=== PATIENT | male | born 1965 | race Caucasian/White ===

== ENCOUNTER → 2018-03-10 15:15 | Outpatient (REF) | payer BC, SELFPAY ==
[2018-03-10 18:36] LABS: Basophils % 0.6 % (0.1-2.0); Eosinophils # 0.1 K/mm3 (0.0-0.4); Eosinophils % 0.7 % (0.1-12.0); Hematocrit 41.2 % (42.0-52.0); Hemoglobin 14.2 g/dL (14.1-18.0); Lymphocytes # 2.1 K/mm3 (0.7-4.5); Lymphocytes % 32.3 K/mm3 (10-50); Mean Corpuscular HGB Conc 34.5 g/dL (31.8-35.4); Mean Corpuscular Hemoglobin 32.5 pg (27.0-31.2); Mean Corpuscular Volume 94.3 fl (80-94); Mean Platelet Volume 7.9 fl (7.4-10.4); Monocytes # 0.4 K/mm3 (0.1-1.0); Monocytes % 6.4 % (1.7-9.3); Neutrophils % 60.1 % (37.0-80.0); Platelet Count 256 K/mm3 (142-424); Red Blood Count 4.37 M/mm3 (4.60-6.20); Red Cell Distribution Width 13.5 % (11.5-17.5); White Blood Count 6.6 K/mm3 (4.8-10.8)
[2018-03-10 19:00] LABS: Alanine Aminotransferase 34 U/L (12-78); Albumin Level 3.5 gm/dL (3.4-5.0); Albumin/Globulin Ratio 1.1 (1.1-1.8); Alkaline Phosphatase 103 U/L (46-116); Aspartate Amino Transferase 25 U/L (15-37); Bilirubin,Total 0.2 mg/dL (0.2-1.0); Blood Urea Nitrogen 11 mg/dL (7-18); Calcium 8.9 mg/dL (8.5-10.1); Carbon Dioxide 26 mmol/L (21.0-32.0); Chloride 103 mmol/L (98-107); Chol/HDL Ratio 6.2 (1-3.5); Cholesterol 234 mg/dL (140-200); Creatinine,Serum 1.07 mg/dL (0.70-1.30); Estimated Glomerular Filt Rate 73 ml/min (>60); GFR (African American) 89 ML/MIN (>60); Globulin 3.3 gm/dl (1.3-3.2); HDL Cholesterol 38 mg/dL (27-67); Sodium 140 mmol/L (136-145); T4 (Thyroxine) 7.5 ug/dl (4.7-13.3); Total Protein,Serum 6.8 gm/dL (6.4-8.2)
[2018-03-10 19:24] LABS: Glucose 110 mg/dL (74-106); Triglycerides 468 mg/dL (30-200)
[2018-03-12 11:13] LABS: Hep A Ab, IgM Negative (Negative); Hepatitis B Core Antibody IgM Negative (Negative); Hepatitis B Surface Antigen Negative (Negative)
[2018-03-12 16:38] LABS: Peripheral Smear Review Scanned Result
[2018-03-12 18:39] LABS: HIV Screen 4th Generation wRfx Non Reactive (Non Reactive); Hepatitis C Antibody <0.1 s/co ratio (0.0-0.9)
[2018-03-14 06:09] LABS: PSA, Free 0.28 ng/mL; Prostate Specific Ag 1.1 ng/mL (0.0-4.0); Vitamin D 25 Hydroxy 27.9 ng/mL (30.0-100.0)
[2018-03-14 15:31] LABS: Neisseria gonorrhoeae, NAA Negative (Negative)
[2018-03-17 21:09] LABS: Testosterone, Total, LC/MS 313.3 ng/dL (264.0-916.0)
== END ==
LOC: LAB 15:15
PROVIDERS: Visit Provider Physician Assistant
DX: R19.09 Other intra-abdominal and pelvic swelling, mass and lump (principal)
CPT/HCPCS: 80053; 80061; 80074; 82652; 84153; 84154; 84402; 84436; 84443; 85025; 86703; 87491; 87591; G0432

== ENCOUNTER → 2018-03-11 10:42 | Outpatient (CLI) | payer BC, SELFPAY ==
--- NOTE | 2018-03-11 11:02 | US_ITS ---
US extremity RT limited CLINICAL INDICATION: ITS.REASON: Mass rt groin ORDERING PHYSICIAN: TORRIE Amaya PATIENT AGE: 52 years FINDINGS: Ultrasound performed of the palpable abnormality in the right groin. This is below the level the inguinal ligament. There is a hypoechoic solid appearing mass measuring 4 x 2 x 3 cm. This has the appearance of an enlarged lymph node. There is some increased echogenicity centrally as one sees with a hilum of the lymph node. There is moderate increase vascularity. IMPRESSION: Solid appearing right groin mass which appears to represent an enlarged lymph node. This would be accessible to percutaneous fine-needle aspiration with sonographic guidance if clinically warranted as long as the patient is not on any anticoagulants including aspirin. However, would also recommend a chest abdomen pelvis with contrast to evaluate for other areas of adenopathy.
== END ==
PROVIDERS: Family Provider Physician Assistant; PCP Physician Assistant; Visit Provider Physician Assistant
DX: R19.09 Other intra-abdominal and pelvic swelling, mass and lump (principal)
CPT/HCPCS: 76882

== ENCOUNTER → 2018-03-22 08:07 | Outpatient (REF) | payer BC, SELFPAY ==
[2018-03-24 06:10] LABS: Testosterone,Free 8.7 pg/mL (7.2-24.0)
[2018-03-25 19:22] LABS: Testosterone, Total, LC/MS 317.9 ng/dL (264.0-916.0)
== END ==
LOC: LAB 08:07
PROVIDERS: Visit Provider Physician Assistant
DX: R19.09 Other intra-abdominal and pelvic swelling, mass and lump (principal)
CPT/HCPCS: 84402

== ENCOUNTER → 2018-03-28 09:21 | Outpatient (CLI) | payer BC, SELFPAY ==
--- NOTE | 2018-03-28 09:23 | CT_ITS ---
CT abdomen pelvis w con CLINICAL HISTORY: Recent enlarged right inguinal lymph node . TECHNIQUE: Helical CT scanning performed abdomen and pelvis following 75 cc Isovue-370.. No oral contrast utilized. Axial sagittal and coronal reconstructions performed on CT workstation. All CT scans at this facility used one or more dose reduction techniques , viz: automatic exposure control, ma/Kv adjustment per patient's size, (including targeted exam where dose matched to the indication; i.e. head); or iterative reconstruction technique COMPARISON: CT abdomen from 2006 PROCEDURE: Oral Contrast: IV Contrast: ml IV Isovue was injected intravenously. FINDINGS: Lung bases: ABDOMEN: Liver: No masses or biliary dilatation. Gallbladder: Nondistended. No radio opaque stones.. No biliary ductal dilatation Pancreas: No masses or peripancreatic fluid collections. Spleen: Unremarkable. Normal size Adrenals: Unremarkable Kidneys/ureters: No solid masses. No renal calculi. No hydronephrosis. No perinephric fluid collections. No ureteral dilatation or obvious ureteral calculi.. 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 2.1 cm and not appearing cyst at the anterior aspect of lower left kidney. This benign cyst is larger than 2007 but can be followed PELVIS: Bladder: Nondistended. No obvious masses. Appendix: Unremarkable. No distention or periappendiceal phlegmonous change. Right Inguinal Region: Most prominent. Lymph node measuring up to nearly 3.5 cm length x 1.5 cm transverse. This likely corresponds with the palpable node. This is a a change from [address] This node measured up to 4.2 cm x 2.1 cm on the recent ultrasound. It had a abnormal morphology on that ultrasound suspect for a or pathologic node. Left inguinal region: Small more typical left inguinal node. 1.5 cm length x 0.9 cm. Otherwise the pelvis unremarkable., no remarkable pelvic nor retroperitoneal adenopathy.. No pelvic sidewall adenopathy. No pelvic mass.. There are small scattered nodes throughout mesentery,. With the largest of these measuring 14 mm length x 6 mm.. The small mesenteric nodes nicely seen on axial slice 88 with other smaller scattered nodes throughout the mesentery Size. In 2006 the patient had significantly larger and more prominent mesenteric lymph nodes. These are decreased in size since that time. GI tract Stomach bowel: Nondistended. No obvious mass or thickening. .: No abnormal fluid collections. No obvious inflammatory changes. Vasculature: No evidence of abdominal aortic aneurysm. No retroperitoneal hemorrhage evident. Bones: Unremarkable appearing bony structures. No lytic or blastic changes. No obvious fractures. IMPRESSION: 1. . Recent March 11, 2018 ultrasound showed a bothersome appearing right inguinal mass.. Likely enlarged lymph node with thickened cortex on this recent ultrasound measured 4.2 cm length x 2 cm. However on today's CT this apparent/probable lymph node appears smaller, measuring 3.5 cm in length maximally x 1.5 cm transverse. This could reflect a resolving inflamed node. Correlation required. *However would strongly recommend a follow-up ultrasound within the next 4 weeks, & if this enlarged node with thickened cortex appears persist then would likely again recommend FNA biopsy. . 2. Small scattered nodes throughout mesentery In 2006 patient had numerous significantly larger, generous size nodes throughout the mesentery in 2006. Today we see only small residual nodes of the previously enlarged nodes persist at mesentery.. 3. No retroperitoneal adenopathy. Spleen is solid organs a
== END ==
PROVIDERS: Family Provider Physician Assistant; PCP Physician Assistant; Visit Provider Physician Assistant
DX: R59.0 Localized enlarged lymph nodes (principal); Z79.899 Other long term (current) drug therapy
CPT/HCPCS: 74177; Q9967

== ENCOUNTER → 2018-04-28 15:11 | Outpatient (CLI) | payer BC, SELFPAY ==
--- NOTE | 2018-04-28 15:13 | US_ITS ---
US extremity RT limited CLINICAL INDICATION: Right groin mass ITS.REASON: resolving mass in rt groin ORDERING PHYSICIAN: Osiel Stuart MD PATIENT AGE: 53 years Comparison: 03/11/2018 FINDINGS: An oval hypoechoic lesion is once again noted in the right groin. This measures 2.7 x 0.9 x 1.4 cm previously 4 x 2 x 3 cm. This is slightly hypoechoic but does not appear cystic and likely related to a lymph node. There is vascular flow to this lesion. IMPRESSION: Persistent right groin nodule which has decreased in size compared to the previous exam likely related to enlarged lymph node
== END ==
PROVIDERS: Family Provider Physician Assistant; PCP Physician Assistant; Visit Provider Emergency Medicine
DX: R19.09 Other intra-abdominal and pelvic swelling, mass and lump (principal); R59.0 Localized enlarged lymph nodes
CPT/HCPCS: 76882

== ENCOUNTER → 2018-05-12 08:17 | Outpatient (CLI) | payer BC, SELFPAY ==
--- NOTE | 2018-05-12 08:19 | US_ITS ---
FNA w guidance Ultrasound right groin Ultrasound-guided FNA biopsy right groin node/mass Ordering Physician: TORRIE Amaya Patient Age: 53 years: Male HISTORY: ITS.REASON: right inguinal lymphadenopathy; Humira TECHNIQUE: Real-time ultrasound imagingWith FNA ultrasound-guided biopsy groin node, mass FINDINGS AND PROCEDURE: ULTRASOUND RIGHT GROIN LYMPH NODE; The mass is identified and measures up to 2.7 maximum dimension. This is similar to its size similar to 518 but slightly smaller than the original study 03/11/2018 at which time it measured 4.2 cm. .These images also determined the best approach for access to perform aspiration biopsy of this nodule. Scanning by Dr. Trujillo ULTRASOUND-GUIDED FNA BIOPSY right groin lymph node Following sterile preparation as well as local skin, and cautious deeper placement of Xylocaine anesthetic .. Under ultrasound guidance the biopsy needle, was advanced to the nodule and positioned. Needle tip was observed passing into the nodule on each of multipleFNA biopsies passes. A total of 5 were performed but adequate material was submitted for cytology as well as specific lymph node biopsy solution FNA specimen material obtained and subsequently submitted to cytopathology. Patient tolerated procedure well. IMPRESSION: Successful FNA biopsy of the right groin mass, lymphadenopathy CYTOPATHOLOGY REPORT: No evidence of malignancy. Polymorphic lymphocytes. FLOW CYTOMETRY. No significant abnormalities detected
== END ==
PROVIDERS: Family Provider Physician Assistant; PCP Physician Assistant; Visit Provider Radiology Diagnostic Radiology
DX: R19.09 Other intra-abdominal and pelvic swelling, mass and lump (principal)
CPT/HCPCS: 10022; 76882

== ENCOUNTER → 2018-08-24 13:09 | Outpatient (CLI) | payer BC, SELFPAY | PROVIDERS: PCP Physician Assistant; Visit Provider Physician Assistant | DX: L02.213 Cutaneous abscess of chest wall (principal) | CPT/HCPCS: 87070; 87077; 87186; 87205 ==

== ENCOUNTER → 2018-09-20 16:44 | Outpatient (CLI) | payer BC, SELFPAY ==
[2018-09-20 17:27] LABS: Basophils # 0.1 K/mm3 (0-0.2); Basophils % 0.4 % (0.1-2.0); Eosinophils % 0.1 % (0.1-12.0); Hematocrit 46.3 % (42.0-52.0); Hemoglobin 15.2 g/dL (14.1-18.0); Lymphocytes # 2.3 K/mm3 (0.7-4.5); Lymphocytes % 16.7 % (10-50); Mean Corpuscular HGB Conc 32.8 g/dL (31.8-35.4); Mean Corpuscular Hemoglobin 30.4 pg (27.0-31.2); Mean Corpuscular Volume 92.8 fl (80-94); Mean Platelet Volume 7.4 fl (7.4-10.4); Monocytes # 0.9 K/mm3 (0.1-1.0); Monocytes % 6.4 % (1.7-9.3); Neutrophils # 10.5 K/mm3 (1.8-7.8); Neutrophils % 76.5 % (37.0-80.0); Platelet Count 241 K/mm3 (142-424); Red Blood Count 4.99 M/mm3 (4.60-6.20); Red Cell Distribution Width 16.3 % (11.5-17.5); White Blood Count 13.8 K/mm3 (4.8-10.8)
[2018-09-20 20:20] LABS: Alanine Aminotransferase 72 U/L (12-78); Albumin Level 3.4 gm/dL (3.4-5.0); Alkaline Phosphatase 84 U/L (46-116); Anion Gap 13.6 mEq/L (5-15); Aspartate Amino Transferase 22 U/L (15-37); Bilirubin,Total 0.2 mg/dL (0.2-1.0); Blood Urea Nitrogen 26 mg/dL (7-18); Calcium 8.6 mg/dL (8.5-10.1); Carbon Dioxide 29 mmol/L (21.0-32.0); Chloride 98 mmol/L (98-107); Creatinine,Serum 1.06 mg/dL (0.70-1.30); Estimated Glomerular Filt Rate 74 ml/min (>60); GFR (African American) 89 ML/MIN (>60); Globulin 3.3 gm/dl (1.3-3.2); Glucose 130 mg/dL (74-106); Potassium 4.6 mmoL/L (3.5-5.1); Sodium 136 mmol/L (136-145); Total Protein,Serum 6.7 gm/dL (6.4-8.2)
== END ==
PROVIDERS: Visit Provider Internal Medicine
DX: Z87.19 Personal history of other diseases of the digestive system (principal)
CPT/HCPCS: 36415; 80053; 85025

== ENCOUNTER → 2018-10-20 17:19 | Outpatient (CLI) | payer BC, SELFPAY ==
[2018-10-20 18:11] LABS: Basophils % 0.4 % (0.1-2.0); Eosinophils % 0.1 % (0.1-12.0); Hematocrit 40.7 % (42.0-52.0); Hemoglobin 13.2 g/dL (14.1-18.0); Lymphocytes # 1.9 K/mm3 (0.7-4.5); Lymphocytes % 16.1 % (10-50); Mean Corpuscular HGB Conc 32.5 g/dL (31.8-35.4); Mean Corpuscular Hemoglobin 31.1 pg (27.0-31.2); Mean Corpuscular Volume 95.6 fl (80-94); Mean Platelet Volume 7.1 fl (7.4-10.4); Monocytes # 0.6 K/mm3 (0.1-1.0); Monocytes % 5.2 % (1.7-9.3); Neutrophils # 9.2 K/mm3 (1.8-7.8); Neutrophils % 78.3 % (37.0-80.0); Platelet Count 364 K/mm3 (142-424); Red Blood Count 4.26 M/mm3 (4.60-6.20); Red Cell Distribution Width 17.4 % (11.5-17.5); White Blood Count 11.7 K/mm3 (4.8-10.8)
[2018-10-20 20:12] LABS: Alanine Aminotransferase 101 U/L (12-78); Albumin Level 3.7 gm/dL (3.4-5.0); Albumin/Globulin Ratio 1.3 (1.1-1.8); Alkaline Phosphatase 89 U/L (46-116); Anion Gap 13.6 mEq/L (5-15); Aspartate Amino Transferase 34 U/L (15-37); Bilirubin,Total 0.2 mg/dL (0.2-1.0); Blood Urea Nitrogen 25 mg/dL (7-18); Calcium 8.8 mg/dL (8.5-10.1); Carbon Dioxide 29 mmol/L (21.0-32.0); Chloride 100 mmol/L (98-107); Creatinine,Serum 1.28 mg/dL (0.70-1.30); Estimated Glomerular Filt Rate 59 ml/min (>60); GFR (African American) 72 ML/MIN (>60); Globulin 2.9 gm/dl (1.3-3.2); Glucose 117 mg/dL (74-106); Potassium 4.6 mmoL/L (3.5-5.1); Sodium 138 mmol/L (136-145); Total Protein,Serum 6.6 gm/dL (6.4-8.2)
== END ==
PROVIDERS: Visit Provider Nurse Practitioner
DX: K50.90 Crohn's disease, unspecified, without complications (principal)
CPT/HCPCS: 36415; 80053; 85025

== ENCOUNTER → 2018-11-23 07:15 | Outpatient (CLI) | payer BC, SELFPAY ==
[2018-11-23 07:17] LABS: Adenovirus F 40/41, stool Not Detected (NotDetected); Astrovirus Not Detected (NotDetected); Campylobacter Not Detected (NotDetected); Cryptosporidium Not Detected (NotDetected); Cyclospora Cayetanesis Not Detected (NotDetected); Entamoeba histolytica Not Detected (NotDetected); Enteroaggregative E coli Not Detected (NotDetected); Enteropathogenic E coli Not Detected (NotDetected); Enterotoxigenic E coli Not Detected (NotDetected); Giardia lamblia Not Detected (NotDetected); Norovirus Not Detected (NotDetected); Plesimonas Shigalloides, PCR Not Detected (NotDetected); Rotavirus A Not Detected (NotDetected); Salmonella, PCR Not Detected (NotDetected); Sapovirus Not Detected (NotDetected); Shiga-like toxin E coli Not Detected (NotDetected); Shigella Enterovasive E coli Not Detected (NotDetected); Vibrio Cholerae Not Detected (NotDetected); Vibrio, PCR Not Detected (NotDetected); Yersinia Entercolitica, PCR Not Detected (NotDetected)
[2018-11-23 11:43] LABS: Clostridium Difficile A/B, PCR Detected (NotDetected)
== END ==
PROVIDERS: Visit Provider Internal Medicine
DX: K50.90 Crohn's disease, unspecified, without complications (principal)
CPT/HCPCS: 87507

== ENCOUNTER 2019-01-13 12:39 | Outpatient (CLI) | payer BC, SELFPAY ==
[2019-01-13 12:43] VITALS: BMI 25.2
[2019-01-13 13:01] LABS: Basophils % 0.3 % (0.1-2.0); Eosinophils % 0.2 % (0.1-12.0); Hematocrit 43.2 % (42.0-52.0); Hemoglobin 14.4 g/dL (14.1-18.0); Lymphocytes # 1.1 K/mm3 (0.7-4.5); Lymphocytes % 17.2 % (10-50); Mean Corpuscular HGB Conc 33.4 g/dL (31.8-35.4); Mean Corpuscular Hemoglobin 32.5 pg (27.0-31.2); Mean Corpuscular Volume 97.3 fl (80-94); Mean Platelet Volume 7.6 fl (7.4-10.4); Monocytes # 0.2 K/mm3 (0.1-1.0); Monocytes % 3.4 % (1.7-9.3); Neutrophils # 5.2 K/mm3 (1.8-7.8); Neutrophils % 78.9 % (37.0-80.0); Platelet Count 218 K/mm3 (142-424); Red Blood Count 4.44 M/mm3 (4.60-6.20); Red Cell Distribution Width 12.9 % (11.5-17.5); White Blood Count 6.6 K/mm3 (4.8-10.8)
[2019-01-13 13:13] LABS: Alanine Aminotransferase 38 U/L (12-78); Albumin Level 3.4 gm/dL (3.4-5.0); Alkaline Phosphatase 89 U/L (46-116); Aspartate Amino Transferase 22 U/L (15-37); Bilirubin,Total 0.3 mg/dL (0.2-1.0); Blood Urea Nitrogen 12 mg/dL (7-18); Calcium 8.8 mg/dL (8.5-10.1); Carbon Dioxide 27 mmol/L (21.0-32.0); Chloride 105 mmol/L (98-107); Creatinine Clearance Estimated 101 mL/min (50-200); Creatinine,Serum 1.03 mg/dL (0.70-1.30); Estimated Glomerular Filt Rate 76 ml/min (>60); GFR (African American) 92 ML/MIN (>60); Globulin 3.5 gm/dl (1.3-3.2); Glucose 171 mg/dL (74-106); Sodium 140 mmol/L (136-145); Total Protein,Serum 6.9 gm/dL (6.4-8.2)
[2019-01-13 13:17] LABS: C-Reactive Protein < 0.2 mg/L (0.0-0.9)
[2019-01-13 14:00] VITALS: BP 127/80; PULSE 71; RESP 18; TEMP 36.5
[2019-01-13 14:15] VITALS: BP 120/76; PULSE 73; RESP 18
[2019-01-13 14:30] VITALS: BP 122/74; PULSE 76; RESP 18
[2019-01-13 14:45] VITALS: BP 126/78; PULSE 72; RESP 18
[2019-01-13 15:00] VITALS: BP 129/77; PULSE 74; RESP 18
[2019-01-13 15:10] VITALS: BP 134/78; PULSE 73; RESP 18
== END 2019-01-13 15:10 | disposition home or self-care (01) ==
LOC: INF 12:39
PROVIDERS: Visit Provider Internal Medicine Gastroenterology
DX: Z82.3 Family history of stroke (principal); Z83.3 Family history of diabetes mellitus; Z82.49 Family history of ischemic heart disease and other diseases of the circulatory system; F19.90 Other psychoactive substance use, unspecified, uncomplicated
CPT/HCPCS: 80053; 85025; 86140; 96413; J3590

== ENCOUNTER → 2019-03-16 13:24 | Outpatient (CLI) | payer BC, SELFPAY | PROVIDERS: Visit Provider Nurse Practitioner Family | DX: L53.9 Erythematous condition, unspecified (principal) | CPT/HCPCS: 87070; 87077; 87186; 87205 ==

== ENCOUNTER → 2019-03-28 14:02 | Outpatient (CLI) | payer BC, SELFPAY ==
[2019-03-28 14:21] LABS: Basophils # 0.1 K/mm3 (0-0.2); Basophils % 0.8 % (0.1-2.0); Eosinophils % 0.7 % (0.1-12.0); Hematocrit 43.5 % (42.0-52.0); Hemoglobin 14.6 g/dL (14.1-18.0); Lymphocytes # 1.9 K/mm3 (0.7-4.5); Lymphocytes % 32.5 % (10-50); Mean Corpuscular HGB Conc 33.5 g/dL (31.8-35.4); Mean Corpuscular Hemoglobin 31.3 pg (27.0-31.2); Mean Corpuscular Volume 93.7 fl (80-94); Mean Platelet Volume 8.3 fl (7.4-10.4); Monocytes # 0.3 K/mm3 (0.1-1.0); Monocytes % 4.9 % (1.7-9.3); Neutrophils # 3.6 K/mm3 (1.8-7.8); Neutrophils % 61.1 % (37.0-80.0); Platelet Count 267 K/mm3 (142-424); Red Blood Count 4.65 M/mm3 (4.60-6.20); Red Cell Distribution Width 14.6 % (11.5-17.5); White Blood Count 5.9 K/mm3 (4.8-10.8)
[2019-03-28 14:48] LABS: Alanine Aminotransferase 47 U/L (12-78); Albumin Level 3.6 gm/dL (3.4-5.0); Albumin/Globulin Ratio 1.1 (1.1-1.8); Alkaline Phosphatase 101 U/L (46-116); Anion Gap 12.6 mEq/L (5-15); Aspartate Amino Transferase 27 U/L (15-37); Bilirubin,Total 0.4 mg/dL (0.2-1.0); Blood Urea Nitrogen 11 mg/dL (7-18); Calcium 8.7 mg/dL (8.5-10.1); Carbon Dioxide 28 mmol/L (21.0-32.0); Chloride 105 mmol/L (98-107); Chol/HDL Ratio 4.4 (1-3.5); Cholesterol 192 mg/dL (140-200); Estimated Glomerular Filt Rate 71 ml/min (>60); GFR (African American) 85 ML/MIN (>60); Globulin 3.2 gm/dl (1.3-3.2); Glucose 118 mg/dL (74-106); HDL Cholesterol 44 mg/dL (27-67); LDL Cholesterol 105 mg/dL (0-130); Potassium 4.6 mmoL/L (3.5-5.1); Sodium 141 mmol/L (136-145); T4 (Thyroxine) 6.9 ug/dl (4.7-13.3); Total Protein,Serum 6.8 gm/dL (6.4-8.2); Triglycerides 214 mg/dL (30-200); VLDL Cholesterol 43 mg/dL (0-40)
[2019-03-28 16:30] LABS: Hemoglobin A1C 6.6 % (0.0-7.0)
[2019-03-29 11:20] LABS: Hep A Ab, IgM Negative (Negative); Hepatitis B Core Antibody IgM Negative (Negative); Hepatitis B Surface Antigen Negative (Negative)
[2019-03-31 20:40] LABS: HIV Screen 4th Generation wRfx Non Reactive (Non Reactive); Hepatitis C Antibody 0.1 s/co ratio (0.0-0.9); Testosterone,Total 267 ng/dL (264-916); Vitamin D 25 Hydroxy 71.5 ng/mL (30.0-100.0)
== END ==
PROVIDERS: Visit Provider Physician Assistant
DX: E78.5 Hyperlipidemia, unspecified (principal); R73.09 Other abnormal glucose; R53.83 Other fatigue; D64.9 Anemia, unspecified; E55.9 Vitamin D deficiency, unspecified; E34.9 Endocrine disorder, unspecified
CPT/HCPCS: 80053; 80061; 80074; 82652; 83036; 84403; 84436; 84443; 85025; 86703; G0432

== ENCOUNTER → 2019-06-01 16:47 | Outpatient (CLI) | payer BC, SELFPAY ==
[2019-06-01 17:22] LABS: Basophils % 0.4 % (0.1-2.0); Eosinophils # 0.1 K/mm3 (0.0-0.4); Eosinophils % 0.9 % (0.1-12.0); Hematocrit 41.8 % (42.0-52.0); Hemoglobin 13.7 g/dL (14.1-18.0); Lymphocytes # 1.7 K/mm3 (0.7-4.5); Lymphocytes % 25.5 % (10-50); Mean Corpuscular HGB Conc 32.7 g/dL (31.8-35.4); Mean Corpuscular Hemoglobin 30.7 pg (27.0-31.2); Mean Platelet Volume 7.5 fl (7.4-10.4); Monocytes # 0.4 K/mm3 (0.1-1.0); Monocytes % 5.8 % (1.7-9.3); Neutrophils # 4.5 K/mm3 (1.8-7.8); Neutrophils % 67.3 % (37.0-80.0); Platelet Count 351 K/mm3 (142-424); Red Blood Count 4.45 M/mm3 (4.60-6.20); Red Cell Distribution Width 14.7 % (11.5-17.5); White Blood Count 6.6 K/mm3 (4.8-10.8)
[2019-06-01 18:12] LABS: Alanine Aminotransferase 61 U/L (12-78); Albumin Level 3.4 gm/dL (3.4-5.0); Albumin/Globulin Ratio 1.1 (1.1-1.8); Alkaline Phosphatase 103 U/L (46-116); Anion Gap 10.1 mEq/L (5-15); Aspartate Amino Transferase 31 U/L (15-37); Bilirubin,Total 0.2 mg/dL (0.2-1.0); Blood Urea Nitrogen 11 mg/dL (7-18); Calcium 8.5 mg/dL (8.5-10.1); Carbon Dioxide 28 mmol/L (21.0-32.0); Chloride 107 mmol/L (98-107); Creatinine,Serum 1.16 mg/dL (0.70-1.30); Estimated Glomerular Filt Rate 66 ml/min (>60); GFR (African American) 80 ML/MIN (>60); Globulin 3.2 gm/dl (1.3-3.2); Glucose 128 mg/dL (74-106); Potassium 4.1 mmoL/L (3.5-5.1); Sodium 141 mmol/L (136-145); Total Protein,Serum 6.6 gm/dL (6.4-8.2)
[2019-06-01 18:13] LABS: C-Reactive Protein < 0.2 mg/dL (0.0-0.9)
[2019-06-01 19:04] LABS: Erythrocyte Sedimentation Rate 17 mm/hr (0-20)
[2019-06-03 18:01] LABS: RA Latex Turbid. <10.0 IU/mL (0.0-13.9)
[2019-06-04 17:02] LABS: Anti-Cyclic Citrullinated Pept 3 units (0-19)
[2019-06-05 15:09] LABS: Anti-Centromere B Antibodies <0.2 AI (0.0-0.9); Anti-Jo-1 <0.2 AI (0.0-0.9); Anti-Smith Antibody <0.2 AI (0.0-0.9); Antichromatin Antibodies 0.2 AI (0.0-0.9); Antiscleroderma-70 Antibodies <0.2 AI (0.0-0.9); RNP Antibodies <0.2 AI (0.0-0.9); Sjogren's Anti-SS-A <0.2 AI (0.0-0.9); Sjogren's Anti-SS-B <0.2 AI (0.0-0.9)
[2019-06-05 23:55] LABS: Anti-DNA (DS) Ab Qn <1 IU/mL (0-9)
== END ==
PROVIDERS: Visit Provider Physician Assistant
DX: M25.50 Pain in unspecified joint (principal); Z12.5 Encounter for screening for malignant neoplasm of prostate
CPT/HCPCS: 80053; 85025; 85651; 86140; 86200; 86225; 86235; 86431; G0103

== ENCOUNTER → 2019-12-26 12:58 | Outpatient (CLI) | payer BC, SELFPAY ==
[2019-12-26 13:17] LABS: Adenovirus F 40/41, stool Not Detected (NotDetected); Astrovirus Not Detected (NotDetected); Campylobacter Not Detected (NotDetected); Clostridium Difficile A/B, PCR Not Detected (NotDetected); Cryptosporidium Not Detected (NotDetected); Cyclospora Cayetanesis Not Detected (NotDetected); Entamoeba histolytica Not Detected (NotDetected); Enteroaggregative E coli Not Detected (NotDetected); Enteropathogenic E coli Not Detected (NotDetected); Enterotoxigenic E coli Not Detected (NotDetected); Giardia lamblia Not Detected (NotDetected); Norovirus Not Detected (NotDetected); Plesimonas Shigalloides, PCR Not Detected (NotDetected); Rotavirus A Not Detected (NotDetected); Salmonella, PCR Not Detected (NotDetected); Sapovirus Not Detected (NotDetected); Shiga-like toxin E coli Not Detected (NotDetected); Shigella Enterovasive E coli Not Detected (NotDetected); Vibrio Cholerae Not Detected (NotDetected); Vibrio, PCR Not Detected (NotDetected); Yersinia Entercolitica, PCR Not Detected (NotDetected)
[2019-12-28 12:18] LABS: Calprotectin, Fecal 255 ug/g (0-120)
== END ==
PROVIDERS: Visit Provider Internal Medicine Gastroenterology
DX: K50.90 Crohn's disease, unspecified, without complications (principal); R19.5 Other fecal abnormalities
CPT/HCPCS: 83993; 87507

== ENCOUNTER → 2020-09-16 14:42 | Outpatient (CLI) | payer BC, SELFPAY ==
[2020-09-16 15:20] LABS: Basophils % 0.5 % (0.1-2.0); Eosinophils # 0.1 K/mm3 (0.0-0.4); Hematocrit 39.4 % (42.0-52.0); Hemoglobin 12.7 g/dL (14.1-18.0); Lymphocytes # 2.3 K/mm3 (0.7-4.5); Lymphocytes % 31.3 % (10-50); Mean Corpuscular HGB Conc 32.3 g/dL (31.8-35.4); Mean Corpuscular Hemoglobin 27.3 pg (27.0-31.2); Mean Corpuscular Volume 84.7 fl (80-94); Mean Platelet Volume 7.6 fl (7.4-10.4); Monocytes # 0.4 K/mm3 (0.1-1.0); Monocytes % 4.7 % (1.7-9.3); Neutrophils # 4.6 K/mm3 (1.8-7.8); Neutrophils % 62.3 % (37.0-80.0); Platelet Count 299 K/mm3 (142-424); Red Blood Count 4.66 M/mm3 (4.60-6.20); Red Cell Distribution Width 15.4 % (11.5-17.5); White Blood Count 7.4 K/mm3 (4.8-10.8)
[2020-09-16 16:07] LABS: Alanine Aminotransferase 28 U/L (12-78); Albumin Level 3.9 g/dl (3.5-5.0); Albumin/Globulin Ratio 1.3 (1.1-1.8); Alkaline Phosphatase 116 U/L (38-126); Anion Gap 12.4 mEq/L (5-15); Aspartate Amino Transferase 28 U/L (17-59); Bilirubin,Total 0.2 mg/dl (0.2-1.3); Blood Urea Nitrogen 12 mg/dl (9-20); Carbon Dioxide 27 mmol/L (22.0-30.0); Chloride 104 mmol/L (98-107); Estimated Glomerular Filt Rate 88 ml/min (>60); GFR (African American) 107 ML/MIN (>60); Glucose 126 mg/dl (74-100); Potassium 4.4 mmoL/L (3.5-5.1); Sodium 139 mmol/L (136-145); Total Protein,Serum 6.9 g/dl (6.3-8.2)
[2020-09-16 16:12] LABS: C-Reactive Protein 1.4 mg/L (0-4)
[2020-09-16 16:57] LABS: Vitamin B12 415 pg/mL (239-931)
[2020-09-20 17:19] LABS: QuantiFERON-TB Gold Plus Negative (Negative)
== END ==
PROVIDERS: Visit Provider Physician Assistant
DX: K50.90 Crohn's disease, unspecified, without complications (principal)
CPT/HCPCS: 36415; 80053; 82607; 85025; 86140; 86480

== ENCOUNTER → 2020-10-21 08:52 | Outpatient (CLI) | payer BC, SELFPAY ==
[2020-10-22 07:51] LABS: Covid-19 Nasal PCR Sendout P&C NEGATIVE
== END ==
PROVIDERS: PCP Physician Assistant; Visit Provider Physician Assistant
DX: Z03.818 Encounter for observation for suspected exposure to other biological agents ruled out (principal)
CPT/HCPCS: U0004

== ENCOUNTER → 2020-11-01 14:11 | Outpatient (CLI) | payer BC, SELFPAY ==
--- NOTE | 2020-11-01 14:11 | MR_ITS ---
PROCEDURE: MR KNEE LT WO CON CLINICAL INDICATION: left knee pain and popping Left knee pain and swelling with stiffness and popping COMPARISON: CR XR KNEE LT 3V from 01/05/2020 TECHNIQUE: Routine multiplanar multi echo sequences are performed without gadolinium enhancement. FINDINGS: The cruciate ligaments, collateral ligaments, patellar tendon, and quadriceps tendon appear intact. No evidence of meniscal tear. There is a small knee joint effusion. The patellar cartilage is preserved. No significant degenerative change. No bone marrow edema. IMPRESSION: Small knee joint effusion. No internal derangement apparent. Dictated by: Negrito Chandra MD 11/02/2020 12:50 Negrito Chandra MD in [place] 11/02/2020 12:50
== END ==
PROVIDERS: PCP Physician Assistant; Visit Provider Physician Assistant
DX: M25.562 Pain in left knee (principal)
CPT/HCPCS: 73721

== ENCOUNTER → 2020-11-19 08:20 | Outpatient (CLI) | payer BC, SELFPAY ==
--- NOTE | 2020-11-19 08:28 | XR_ITS ---
PROCEDURE: XR HIP LT 2-3V W/PELVIS CLINICAL INDICATION: left hip pain COMPARISON: No exams were available for comparison FINDINGS: There are mild osteoarthritic changes involving both hips. No fracture or dislocation. No lytic or blastic change. IMPRESSION: Mild osteoarthritis of the hips Dictated by: Negrito Chandra MD 11/19/2020 16:09 Negrito Chandra MD in [place] 11/19/2020 16:09
--- NOTE | 2020-11-19 08:28 | XR_ITS ---
PROCEDURE: XR KNEE LT 4V CLINICAL INDICATION: left knee pain COMPARISON: CR XR KNEE LT 3V from 01/05/2020 CR XR KNEE RT 3V from 01/05/2020 MR MR KNEE LT WO CON from 11/01/2020 FINDINGS: No fracture or dislocation. No lytic or blastic change. There is normal mineralization. The joint spaces are well-preserved. No significant degenerative/arthritic changes. No erosive changes evident. Other findings:No change in the small calcific density at the distal thigh laterally. Small suprapatellar effusion suspected. IMPRESSION: Small suprapatellar effusion otherwise negative Dictated by: Negrito Chandra MD 11/19/2020 16:10 Negrito Chandra MD in [place] 11/19/2020 16:10
== END ==
PROVIDERS: PCP Physician Assistant; Visit Provider Orthopaedic Surgery
DX: M25.562 Pain in left knee (principal); M25.552 Pain in left hip
CPT/HCPCS: 73502; 73564

== ENCOUNTER → 2020-11-26 13:38 | Outpatient (CLI) | payer BC, SELFPAY ==
--- NOTE | 2020-11-26 13:38 | MR_ITS ---
PROCEDURE: MR HIP LT WO CON CLINICAL INDICATION: evaluate for avascular necrosis HX ARTHRITIS IN LT HIP X1YR. NO INJURY OR SURGERY. PRIOR X-RAY 11-19-20 COMPARISON: CT [id number] CT abdomen pelvis w con from 03/28/2018 CR XR HIP LT 2-3V W/PELVIS from 11/19/2020 TECHNIQUE: Routine multiplanar multi echo sequences are performed without gadolinium enhancement. FINDINGS: Geographic areas I so to slightly hypointense T1 and increased T2 signal noted within the femoral heads on both sides slightly more extensive on the left. There is a thin zone of decreased T1 signal surrounding the area of abnormal signal intensity. These findings are consistent with avascular necrosis. Mild osteoarthritic changes are present involving the hips. There is some minimal cortical irregularity and very early cortical collapse of the left femoral head. No significant effusion. IMPRESSION: Bilateral avascular necrosis of the femoral heads, Ficat stage II Mild osteoarthritic changes of the hips. Dictated by: Negrito Chandra MD 11/27/2020 11:15 Negrtio Chandra MD in [place] 11/27/2020 11:15
== END ==
PROVIDERS: PCP Physician Assistant; Visit Provider Orthopaedic Surgery
DX: M25.552 Pain in left hip (principal); M25.551 Pain in right hip; G89.29 Other chronic pain
CPT/HCPCS: 73721

== ENCOUNTER 2020-12-06 09:00 | Outpatient (RCR) | payer BC, SELFPAY ==
--- NOTE | 2020-11-01 13:48 | HMH.PTOPEV ---
PT Outpatient Evaluation Rehab PT Outpatient Evaluation Start: 11/01/20 13:16 Freq: Status: Active Protocol: Document 11/01/20 13:17 TESS (Rec: 11/01/20 13:47 TESS [id number]) Electronically Signed By Rojas Cervantes, PT 11/01/20 13:17 Outpatient Therapy Subjective History Subjective History Pt reports h/o chronic L knee pain beginning in December. Pt reports exacerbation over the last 30 days, with recurrent 'popping', kamryn. w/ kneeling and squatting. Pt reports mostly anterio-medial and anterio-lateral L knee pain. Pt reports significant improvement in L knee s/s ' steroid injection and dose pack' ~10 days ago. PMH: L ankle ORIF 2000 Chief Complaint Pain,Stiff,Clicks,Swelling Symptom Type Ache,Sharp,Dull Symptoms Relieved By Rest/Positioning Symptoms Aggravated By Physical Activity Prior Functional Limitations Squatting,Stairs Current Functional Limitations Squatting,Stairs Symptom Description Constant but Variable Level of pain today (0-10) 3 Pain scale - at its best (0-10) 2 Pain scale - at its worst (0-10) 8 Hip/Knee Eval Gait Observation General Gait Pattern Observation Antalgic Gait Palpation Tenderness left Knee Palpation Finding Tenderness Knee Palpation Overall Comment medial and lateral jt line 2-3 /4 MMT Hip Flexion Strength Grade 5 Normal Hip Abduction Strength Grade 4 Good Hip Adduction Strength Grade 4- Good- Hip Extension Strength Grade 4 Good Hip External Rotation Strength Grade 4 Good Hip Internal Rotation Strength Grade 4 Good Knee Extension Strength Grade 5 Normal Knee Flexion Strength Grade 4 Good ROM Knee Flexion Active Range of Motion ( 0-140 degrees) Knee Flexion Passive Range of Motion ( 0-140-145 w/click/shift degrees) Special Tests Knee Valgus Stress Test Negative Left Knee Varus Stress Test Negative Left Knee Liudmila Test Negative Left Patellar Grind Test Positive Left Patellar Compression Test Positive Left Patella Houghston's Plica Test Positive Left Outpatient Therapy Assessment Impairments Problems/Impairmments Palpation Tenderness,Impaired Strength,Impaired Gait Pattern ,Impaired Stair Climbing, Impaired Squatting,Impaired
--- NOTE | 2020-12-04 08:22 | HMH.RHREAS ---
Rehab Reassessment Rehab OP Re-assessment Start: 12/04/20 08:11 Freq: Status: Active Protocol: Document 12/04/20 08:11 TESS (Rec: 12/04/20 08:21 TESS [id number]) Electronically Signed By Rojas Cervantes, PT 12/04/20 08:11 Rehab Re-assessment Subjective Subjective Pt reports improved L knee pain @0/10 on VAS this AM Objective Objective Notes AROM: L KNEE FLX 0-145 MMT: L QUAD 5/5, HS 5/5, L HIP FLX 5/5, ABD 4-4+/5, ADD 4+/5 , EXT 4/5, IR 4/5, ER 4+/5 TTP: MEDIAL JT LINE L KNEE 10/28 Assessment Progress Assessment Progressing as Expected Assessment Notes IMPROVED STRENGTH, TTP, ROM Patient goals met STG'S 5/5 LTG'S 3/7 Goals Not Met LTG'S 4/7 Plan Plan PT TO CONT. W/SKILLED P.T. TO [place] FURTHER IMPROVEMENTS IN ROM, STRENGTH, AND TTP TO ALLOW FOR OPTIMAL FUNCTION Frequency of Therapy 1-2X/WK Duration of therapy 2-4 WKS Time and Billing Re-Eval Time 15 Re-Eval Billing Units 1 PHYSICIAN CERTIFICATION: I certify the specified therapy services for Ryland Cervantes are required, authorized, and reviewed every 30 days.
== END 2020-12-06 09:05 | disposition home or self-care (01) ==
LOC: PT 09:00
PROVIDERS: PCP Physician Assistant; Visit Provider Physician Assistant
DX: M25.562 Pain in left knee (principal)
CPT/HCPCS: 97014; 97016; 97033; 97035; 97110; 97163; 97164; G0283

== ENCOUNTER → 2021-02-21 09:53 | Outpatient (CLI) | payer BC, SELFPAY ==
[2021-02-21 09:58] LABS: Adenovirus F 40/41, stool Not Detected (NotDetected); Astrovirus Not Detected (NotDetected); Campylobacter Not Detected (NotDetected); Clostridium Difficile A/B, PCR Not Detected (NotDetected); Cryptosporidium Not Detected (NotDetected); Cyclospora Cayetanesis Not Detected (NotDetected); Entamoeba histolytica Not Detected (NotDetected); Enteroaggregative E coli Not Detected (NotDetected); Enteropathogenic E coli Not Detected (NotDetected); Enterotoxigenic E coli Not Detected (NotDetected); Giardia lamblia Not Detected (NotDetected); Norovirus Not Detected (NotDetected); Plesimonas Shigalloides, PCR Not Detected (NotDetected); Rotavirus A Not Detected (NotDetected); Salmonella, PCR Not Detected (NotDetected); Sapovirus Not Detected (NotDetected); Shiga-like toxin E coli Not Detected (NotDetected); Shigella Enterovasive E coli Not Detected (NotDetected); Vibrio Cholerae Not Detected (NotDetected); Vibrio, PCR Not Detected (NotDetected); Yersinia Entercolitica, PCR Not Detected (NotDetected)
== END ==
PROVIDERS: Visit Provider Internal Medicine Gastroenterology
DX: K50.90 Crohn's disease, unspecified, without complications (principal)
CPT/HCPCS: 87507

== ENCOUNTER 2021-02-23 09:17 | Emergency (ER) | payer BC, SELFPAY ==
[2021-02-23 09:20] VITALS: BP 138/95; PULSE 80; RESP 21; TEMP 36.8; O2SAT 100; BMI 24.0
--- NOTE | 2021-02-23 09:34 | HMH.EDUTC ---
[facility] [place] Clinical Impression: Allergic rhinitis Qualifiers: Allergic rhinitis trigger: unspecified Allergic rhinitis seasonality: unspecified Qualified Code(s): J30.9 - Allergic rhinitis, unspecified Disposition: Home, Self-Care Condition on Discharge: Good Instructions: DI for Allergic Rhinitis, DI for COVID-19 (Suspected or Confirmed ), Preventing the Spread of Coronavirus Discharge Instructions Additional Instructions: Continue taking your Cephalexin, Silvia and flonase as directed *Monitor Temp, Over the counter Motrin or Tylenol as directed/as needed Tylenol every 4 hours and Motrin every 6 hours (as long as your family doctor has told you that you can take it) for fever or pain. and straight to ER if unable to lower temp less than 101.0 after medication given *Warm salt water gargles may help to soothe the throat *Throat Lozenges *Warm fluids like tea with honey may help to soothe the throat and help with nasal congestion *Sleep elevated *Humidifier/Vaporizer *Flonase 2 sprays in each nostril daily but be aware that it may take 2-3 days before you notice improvement Follow up IMMEDIATELY for new or worsening symptoms or no Noticeable improvement over the next 48-72 hours. 911 for difficulty breathing or swallowing You were tested for today for COVID19 your test result should be back in the next 24-48 hours, you may call to the [facility] to see if your test results are back in the next 48 hours [phone] [facility] hours are 9am-9pm You was given a handout with instructions for Self Quarantine and Self isolation for while you wait on test results and what to do if they are positive If you are positive the Health Dept will be contacting you also Referrals: Juju Acevedo PA [Primary Care Provider] - Forms: Work/School Release Time of Disposition: 09:59 Medical Decision Making - Demarcus Inquiry Pt receiving controlled substance: No Demarcus was queried for this patient: No Vital Signs: 02/23/21 09:20 02/23/21 10:08 Temperature 98.3 F 98.3 F Temperature Source Oral Pulse Rate 80 Pulse Rate [Left Brachial] 80 Respiratory Rate 21 21 Blood Pressure 138/95 H Blood Pressure [Left Arm] 138/95 H Blood Pressure Mean [Left Arm] 109 Blood Pressure Source [Left Arm] Automatic Cuff Blood Pressure Position [Left Arm] Sitting 02 Sat by Pulse Oximetry 100 Oxygen Delivery Method Room Air Orders (Tests/Meds): ED MEDICATIONS Discontinued Medications Generic Name Dose Route Start Last Admin Trade Name Jasen PRN Reason Stop Dose Admin Methylprednisolone Sodium Succinate 125 mg 02/23/21 09:50 02/23/21 10:00 Methylprednisolone Sod Succ 125mg Vial IM 02/23/21 09:51 125 mg ONCE ONE Administration Medical Decision Narrative: Patient states that he has taken steriods in the past without complications or reactions [facility] [place] HPI - General Stated complaint: running nose, sinus Time Seen by Provider: 02/23/21 09:34 Mode of Arrival: Ambulatory Source of Information: Patient Limitations: No Limitations Description of Symptoms (Recalled from Triage Doc. by RN): PATIENT C/O CONGESTION AND RUNNY NOSE X 2-3 DAYS HEENT Symptoms (Recalled from RN notes): Yes Resp Symptoms (Recalled from RN notes): No Skin Symptoms (Recalled from RN notes): No MS Symptoms (Recalled from RN notes): No Functional Status (Recalled from RN notes): WNL - History of Present Illness Provider Complaint: Patient states that he has been having allergy problems for over a week and over the last couple of days has got worse States that he is having nasal congestion and runny nose body aches and over all not feeling well. States that it has been mostly clear but had some slight discoloration yesterday States that he is currently on Cephalexin States that he feels like it is draining in the back of his throat - Related Data Home Medications Medication Instructions Recorded Confirmed Atorvastatin Calcium [Lipitor 10mg 10 mg PO
[2021-02-23 10:08] VITALS: BP 138/95; PULSE 80; RESP 21; TEMP 36.8; O2SAT 100
--- NOTE | 2021-02-23 13:51 | PC.NURSE ---
PATIENT NOTIFIED OF POSITIVE COVID TEST AT THIS TIME
== END 2021-02-23 10:14 | disposition home or self-care (01) ==
PROVIDERS: Emergency Provider Nurse Practitioner; PCP Physician Assistant
DX: U07.1 COVID-19 (principal); J30.9 Allergic rhinitis, unspecified; K21.9 Gastro-esophageal reflux disease without esophagitis; E78.5 Hyperlipidemia, unspecified
CPT/HCPCS: 96372; 99202; G0463; U0003

== ENCOUNTER 2021-08-31 09:06 | Emergency (ER) | payer BC, SELFPAY ==
[2021-08-31 09:37] VITALS: BP 147/88; PULSE 87; RESP 114; TEMP 36.7; O2SAT 98; BMI 24.4
--- NOTE | 2021-08-31 10:18 | HMH.EDUTC ---
[facility] – [place] Disposition Clinical Impression: Subconjunctival hemorrhage of left eye Disposition: Home, Self-Care Condition on Discharge: Good Instructions: DI for Subconjunctival Hemorrhage Additional Instructions: Drink plenty of fluids. Take tylenol for pain. Follow up with Juju this week for a recheck. Follow up with your regular doctor. GO TO THE ER FOR ANY WORSENING SYMPTOMS Referrals: Juju Acevedo PA [Primary Care Provider] - Forms: Work/School Release Time of Disposition: 10:26 Medical Decision Making - Medical Records Medical records reviewed: No: I reviewed the patient's medical records. - Demarcus Inquiry Pt receiving controlled substance: No Vital Signs: 08/31/21 09:37 08/31/21 10:29 Temperature 98.0 F 98 F Temperature Source Oral Pulse Rate 87 Pulse Rate [Left] 87 Respiratory Rate 114 H 18 Blood Pressure 147/88 H Blood Pressure [Right Arm] 147/88 H Blood Pressure Mean [Right Arm] 107 02 Sat by Pulse Oximetry 98 Medical Decision Narrative: vison is normal in both eyes. 20/[address] [facility] [place] HPI - General Stated complaint: lt eye swelling/redness Time Seen by Provider: 08/31/21 10:18 Mode of Arrival: Ambulatory Source of Information: Patient Limitations: No Limitations Description of Symptoms (Recalled from Triage Doc. by RN): pt c/o the inner corner of his L eye being blood red for a couple of months. pt states it has gone away but then came back. vision is 20/20 both eyes. pt states his L eye is slightly blurry. 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 HEENT Symptoms (Recalled from RN notes): Yes (L eye inner corner is blood red) Resp Symptoms (Recalled from RN notes): No Skin Symptoms (Recalled from RN notes): No MS Symptoms (Recalled from RN notes): No Functional Status (Recalled from RN notes): na - History of Present Illness Provider Complaint: He states that he has had rednss of his left eye for the past 2 days. He denies any injury. HE denies any change in his vision. He states that the eye feels slightly irritated, but he denies any pain or significant discomfort. - Related Data Home Medications Medication Instructions Recorded Confirmed cholestyramine (with sugar) 4 gram 1 each PO DAILY g 06/17/21 06/17/21 oral powder esomeprazole magnesium 20 mg 20 mg PO DAILY 06/17/21 06/17/21 capsule,delayed release ustekinumab 90 mg/mL subcutaneous 90 mg SQ Q8W ml 06/17/21 06/17/21 syringe Previous Rx's Medication Instructions Recorded cyclobenzaprine 10 mg tablet 10 mg PO TID #90 tab 06/17/21 tramadol 50 mg tablet 50 mg PO Q8H PRN #90 tab 06/17/21 atorvastatin 10 mg tablet See Rx Instructions .ROUTE 08/15/21 .COMPLEX #90 tab Allergies Allergy/AdvReac Type Severity Reaction Status Date / Time NSAIDS (Non-Steroidal AdvReac Intermediate Verified 06/17/21 10:07 Anti-Inflamma - Worker's Comp Is this a Worker's Comp case?: No [facility] History - Hepatitis A Screen Drug use history?: No High risk sexual behaviors?: No History of sexually transmitted infection?: No Currently employed?: No Childcare worker?: No Do you have indoor plumbing?: Yes Do you have electricity?: Yes Attestation statement:: This patient has been screened for Hepatitis A risk factors. I have reviewed the patient's past medical history: Yes Medical History: Reports:: Gastroesophageal Reflux Disease(GERD), Hyperlipidemia, MRSA Comment: Crohns disease, Vitamin d Other Surgeries: Yes: Cholecystectomy, Colonoscopy, Colon Resection, EGD, Hernia Repair, Other Amputation: No Fractures: No Comment: Lt -1999 - Social History Smoking Status: Never smoker Alcohol Intake: current Alcohol Intake Frequency:: holidays/special occasions only Substance Use Type: denies use Occupational Status: other Housing: house Family Hx:: Diabetes, Coronary Artery Disease ROS Obtained: Yes All systems reviewed & no additional complaints
[2021-08-31 10:29] VITALS: BP 147/88; PULSE 87; RESP 18; TEMP 36.6
== END 2021-08-31 10:32 | disposition home or self-care (01) ==
PROVIDERS: Emergency Provider Nurse Practitioner Family; PCP Physician Assistant
DX: H11.32 Conjunctival hemorrhage, left eye (principal); K21.9 Gastro-esophageal reflux disease without esophagitis; E78.5 Hyperlipidemia, unspecified
CPT/HCPCS: 99202; G0463

== ENCOUNTER → 2021-10-06 09:10 | Outpatient (CLI) | payer BC, SELFPAY ==
[2021-10-06 10:12] LABS: Bilirubin,Unconjugated 0.2 mg/dL (0.0-1.1)
[2021-10-06 10:13] LABS: Alanine Aminotransferase 57 U/L (12-78); Albumin Level 4.2 g/dl (3.5-5.0); Alkaline Phosphatase 122 U/L (38-126); Aspartate Amino Transferase 47 U/L (17-59); Bilirubin,Indirect 0.2 mg/dL (0.0-0.9); Bilirubin,Total 0.2 mg/dl (0.2-1.3)
== END ==
PROVIDERS: Visit Provider Internal Medicine Gastroenterology
DX: K50.90 Crohn's disease, unspecified, without complications (principal)
CPT/HCPCS: 36415; 80076

== ENCOUNTER → 2021-11-17 07:55 | Outpatient (CLI) | payer BC, SELFPAY ==
--- NOTE | 2021-11-17 08:00 | MR_ITS ---
FINAL REPORT CLINICAL HISTORY: low back pain radiating down RLE X3-4 MONTHS FINDINGS: Multiplanar MR imaging of the lumbar spine was performed without contrast. On the sagittal T2-weighted images, decreased signal seen at L4-5 and L5-S1 discs. The vertebral alignment is normal. There is no evidence of fracture. No bony mass is identified. The conus is seen at approximately the L1 level and has an unremarkable appearance. L1-2: There is no significant canal stenosis or neural foraminal narrowing. L2-3: There is no significant canal stenosis or neural foraminal narrowing. L3-4: There is no significant canal stenosis or neural foraminal narrowing. L4-5: Broad-based midline disc protrusion with anterior indentation of the thecal sac and mild bilateral neuroforaminal narrowing. L5-S1: Right posterior lateral disc extrusion is seen extending superiorly. There is moderate to high-grade right lateral recess stenosis is seen on sagittal images 7 and 8 of series 2. Possible free fragment is not excluded. IMPRESSION: Right paracentral disc extrusion with superior extension at L5-S1 and possible free fragment. Consider surgical consultation. Reviewed, Interpreted and Dictated by Nicanor Singh MD Transcribed by Dia Austin Authenticated by Nicanor Singh MD on 11/17/2021 09:57:48 AM [facility]
== END ==
PROVIDERS: PCP Physician Assistant; Visit Provider Physician Assistant
DX: M54.50 Low back pain, unspecified (principal); M79.604 Pain in right leg
CPT/HCPCS: 72148; 76376

== ENCOUNTER → 2021-12-22 08:23 | Outpatient (CLI) | payer BC, SELFPAY | PROVIDERS: Visit Provider Nurse Practitioner Family | DX: Z01.812 Encounter for preprocedural laboratory examination (principal); Z11.52 Encounter for screening for COVID-19 | CPT/HCPCS: C9803; U0003; U0005 ==

== ENCOUNTER 2022-07-17 10:33 | Emergency (ER) | payer BC, SELFPAY ==
--- NOTE | 2022-07-17 11:07 | EXP.UTC ---
Discharge Plan Disposition Patient Disposition: Home, Self-Care Condition: Good Prescriptions Prescriptions: New benzonatate [benzonatate] 100 mg capsule 100 mg PO TIDP PRN (Reason: Cough) Qty: 30 0RF amoxicillin-pot clavulanate 875-125 mg Tablet 1 tab PO Q12H Qty: 20 0RF No Action esomeprazole magnesium 20 mg capsule,delayed release(DR/EC) 20 mg PO DAILY cholestyramine (with sugar) 4 gram powder 1 each PO DAILY acetaminophen-codeine 300-30 mg tablet 1 tab PO Q8H PRN (Reason: pain) Qty: 90 0RF atorvastatin 10 mg tablet See Rx Instructions .ROUTE .COMPLEX Qty: 90 0RF Dose Instruction: TAKE 1 TABLET BY MOUTH AT BEDTIME FOR CHOLESTEROL Rx Instructions: TAKE 1 TABLET BY MOUTH AT BEDTIME FOR CHOLESTEROL cyclobenzaprine 10 mg tablet See Rx Instructions .ROUTE .COMPLEX Qty: 90 1RF Dose Instruction: TAKE 1 TABLET BY MOUTH THREE TIMES DAILY Rx Instructions: TAKE 1 TABLET BY MOUTH THREE TIMES DAILY gabapentin 300 mg capsule 300 mg PO Q8H 14 Days Qty: 42 0RF ustekinumab 90 mg/mL syringe 90 mg SQ Q8W Referrals Follow up/Referrals: Juju Acevedo PA [Primary Care Provider] - See instructions Activity Restrictions/Add. Instructions Additional Instructions/Restrictions: Drink plenty of fluids. Take tylenol or ibuprofen for pain or fever. Take the medications as directed. Follow up with your regular doctor. GO TO THE ER FOR ANY WORSENING SYMPTOMS Throw your tooth brush away and get a new one. Clinical Impressions Clinical Impression: Strep throat Instructions Patient Instructions: DI for Strep Throat Discharge ED Provider: Naren Koch [facility] General Stated complaint: Sore throat Time Seen by Provider: 07/17/22 11:06 History of Present Illness Provider Complaint: He c/o sore throat for the past 2 days. Related Data Home Medications Medication Instructions Recorded Confirmed cholestyramine (with sugar) 4 gram 1 each PO DAILY chrons 06/17/21 07/17/22 oral powder esomeprazole magnesium 20 mg 20 mg PO DAILY GERD 06/17/21 07/17/22 capsule,delayed release ustekinumab 90 mg/mL subcutaneous 90 mg SQ Q8W CROHNS 06/17/21 07/17/22 syringe Previous Rx's Medication Instructions Recorded acetaminophen 300 mg-codeine 30 mg 1 tab PO Q8H PRN pain #90 tabs 11/18/21 tablet atorvastatin 10 mg tablet See Rx Instructions .Route 06/04/22 .COMPLEX #90 tabs cyclobenzaprine 10 mg tablet See Rx Instructions .Route 06/30/22 .COMPLEX #90 tabs gabapentin 300 mg capsule 300 mg PO Q8H 14 days #42 caps 07/14/22 amoxicillin 875 mg-potassium 1 tab PO Q12H #20 tabs 07/17/22 clavulanate 125 mg tablet benzonatate 100 mg capsule 100 mg PO TIDP PRN Cough #30 caps 07/17/22 Allergies Allergy/AdvReac Type Severity Reaction Status Date / Time NSAIDS (Non-Steroidal AdvReac Intermediate Verified 07/17/22 11:20 Anti-Inflamma [facility] Medical History Testosterone deficiency Social History Smoking Status: Never smoker alcohol intake: current substance use type: denies use current occupational status: other Travel in the last 8 weeks: None housing: house ROS Obtained: Yes All systems reviewed & no additional complaints except as documented Constitutional Constitutional: Reports chills and Reports fever(s) Eyes Eyes: Denies eye discharge ENT Ears, Nose, Mouth, and Throat: Reports as per HPI Cardiovascular Cardiovascular: Denies chest pain Respiratory Respiratory: Denies chest congestion and Reports cough Gastrointestinal Gastrointestingal: Reports nausea; Denies abdominal pain, constipation, cramping, diarrhea or vomiting Musculoskeletal Musculoskeletal: Denies arthralgias Integumentary/Breasts Skin/Breast: Denies rash Neurologic Neurologic: Denies paresthesias Physical Exam Gen
[2022-07-17 11:16] VITALS: BP 159/101; PULSE 107; RESP 18; TEMP 36.9; O2SAT 98; BMI 25.0
[2022-07-17 11:16] LABS: UTC Strep Screen (Rapid) Positive (Negative)
[2022-07-17 11:58] VITALS: BP 145/87; PULSE 99; RESP 18; TEMP 36.9
== END 2022-07-17 12:31 | disposition home or self-care (01) ==
PROVIDERS: Emergency Provider Nurse Practitioner Family; PCP Physician Assistant
DX: J02.0 Streptococcal pharyngitis (principal)
CPT/HCPCS: 87880; 96372; 99212; G0463; J0696

== ENCOUNTER → 2022-09-14 16:34 | Outpatient (CLI) | payer BC, SELFPAY ==
[2022-09-20 23:13] LABS: Calprotectin, Fecal 174 ug/g (0-120)
== END ==
PROVIDERS: PCP Physician Assistant; Visit Provider Internal Medicine Gastroenterology
DX: K50.012 Crohn's disease of small intestine with intestinal obstruction (principal)
CPT/HCPCS: 83993

== ENCOUNTER → 2023-05-13 17:54 | Outpatient (CLI) | payer BC, SELFPAY ==
[2023-05-13 13:27] LABS: Alanine Aminotransferase 43 U/L (12-78); Albumin Level 4.4 g/dl (3.5-5.0); Albumin/Globulin Ratio 1.6 (1.1-1.8); Alkaline Phosphatase 161 U/L (38-126); Anion Gap 11.8 mEq/L (5-15); Aspartate Amino Transferase 36 U/L (17-59); Bilirubin,Total 0.5 mg/dl (0.2-1.3); Blood Urea Nitrogen 13 mg/dl (9-20); Calcium 9.2 mg/dl (8.4-10.2); Carbon Dioxide 29 mmol/L (22.0-30.0); Chloride 100 mmol/L (98-107); Cholesterol 178 mg/dl (140-200); Estimated Glomerular Filt Rate 100 ml/min (>60); GFR (African American) 121 ML/MIN (>60); Globulin 2.8 g/dL (1.3-3.2); Glucose 283 mg/dl (74-100); HDL Cholesterol 45 mg/dl (40-60); Potassium 4.8 mmoL/L (3.5-5.1); Sodium 136 mmol/L (136-145); Total Protein,Serum 7.2 g/dl (6.3-8.2); Triglycerides 158 mg/dl (30-150); VLDL Cholesterol 32 mg/dL (0-40)
[2023-05-13 13:39] LABS: Direct LDL Cholesterol 99.68 mg/dL (100-129)
[2023-05-13 13:46] LABS: T4 (Thyroxine) 9.3 ug/dl (5.53-11.0)
[2023-05-13 13:53] LABS: Creatinine,Urine Random 102 mg/dL (Not Estab.); Microalbumin < 6.000 mg/L (0-16.7)
[2023-05-13 13:59] LABS: Thyroid Stimulating Hormone 1.73 uIU/mL (0.465-4.68)
[2023-05-13 16:28] LABS: Basophils % 0.4 % (0.1-2.0); Eosinophils # 0.1 K/mm3 (0.0-0.4); Eosinophils % 1.1 % (0.1-12.0); Hematocrit 45.7 % (42.0-52.0); Hemoglobin 14.3 g/dL (14.1-18.0); Lymphocytes # 1.7 K/mm3 (0.7-4.5); Lymphocytes % 34.5 % (10-50); Mean Corpuscular HGB Conc 31.3 g/dL (31.8-35.4); Mean Corpuscular Volume 95.7 fl (80-94); Mean Platelet Volume 9.5 fl (7.4-10.4); Monocytes # 0.3 K/mm3 (0.1-1.0); Neutrophils # 2.9 K/mm3 (1.8-7.8); Platelet Count 240 K/mm3 (142-424); Red Blood Count 4.78 M/mm3 (4.60-6.20); Red Cell Distribution Width 13.3 % (11.5-17.5); White Blood Count 4.9 K/mm3 (4.8-10.8)
[2023-05-14 23:14] LABS: Neisseria gonorrhoeae, NAA Negative (Negative)
[2023-05-21 14:37] LABS: Free Testosterone (Direct) 4.8 pg/mL (7.2-24.0); Testosterone, Total, LC/MS 356.3 ng/dL (264.0-916.0)
== END ==
PROVIDERS: PCP Nurse Practitioner Family; Visit Provider Nurse Practitioner Family
DX: E11.9 Type 2 diabetes mellitus without complications (principal); K50.90 Crohn's disease, unspecified, without complications; M51.16 Intervertebral disc disorders with radiculopathy, lumbar region; E34.9 Endocrine disorder, unspecified; E78.5 Hyperlipidemia, unspecified; D64.9 Anemia, unspecified; E55.9 Vitamin D deficiency, unspecified; Z79.84 Long term (current) use of oral hypoglycemic drugs; Z12.5 Encounter for screening for malignant neoplasm of prostate
CPT/HCPCS: 80053; 80061; 82043; 82306; 82570; 84436; 84443; 85025; 87491; 87591; G0103

== ENCOUNTER → 2023-05-20 13:46 | Outpatient (CLI) | payer BC, SELFPAY ==
[2023-05-20 15:05] VITALS: BMI 23.0
== END ==
PROVIDERS: PCP Physician Assistant; Visit Provider Nurse Practitioner Family
DX: Z71.3 Dietary counseling and surveillance (principal); E11.9 Type 2 diabetes mellitus without complications
CPT/HCPCS: 97802

== ENCOUNTER 2023-09-06 08:18 | Outpatient (CLI) | payer BC, SELFPAY ==
[2023-09-06 08:25] VITALS: BMI 23.7
[2023-09-06 08:45] LABS: Chloride 99 mmol/L (98-107); Sodium 137 mmol/L (136-145)
[2023-09-06 08:46] LABS: Potassium 4.5 mmoL/L (3.5-5.1)
[2023-09-06 08:47] LABS: Basophils # 0.1 K/mm3 (0-0.2); Basophils % 0.7 % (0.1-2.0); Eosinophils # 0.1 K/mm3 (0.0-0.4); Eosinophils % 1.1 % (0.1-12.0); Hematocrit 44.1 % (42.0-52.0); Hemoglobin 14.7 g/dL (14.1-18.0); Lymphocytes # 1.9 K/mm3 (0.7-4.5); Lymphocytes % 25.3 % (10-50); Mean Corpuscular HGB Conc 33.3 g/dL (31.8-35.4); Mean Corpuscular Hemoglobin 31.4 pg (27.0-31.2); Mean Corpuscular Volume 94.4 fl (80-94); Monocytes # 0.3 K/mm3 (0.1-1.0); Neutrophils # 5.1 K/mm3 (1.8-7.8); Neutrophils % 68.8 % (37.0-80.0); Platelet Count 226 K/mm3 (142-424); Red Blood Count 4.67 M/mm3 (4.60-6.20); Red Cell Distribution Width 13.4 % (11.5-17.5); White Blood Count 7.3 K/mm3 (4.8-10.8)
[2023-09-06 08:48] LABS: Alanine Aminotransferase 42 U/L (12-78); Albumin Level 4.6 g/dl (3.5-5.0); Albumin/Globulin Ratio 1.5 (1.1-1.8); Alkaline Phosphatase 107 U/L (38-126); Anion Gap 13.5 mEq/L (5-15); Aspartate Amino Transferase 36 U/L (17-59); Bilirubin,Total 0.2 mg/dl (0.2-1.3); Blood Urea Nitrogen 23 mg/dl (9-20); Carbon Dioxide 29 mmol/L (22.0-30.0); Creatinine Clearance Estimated 93 mL/min (50-200); Estimated Glomerular Filt Rate 77 ml/min (>60); GFR (African American) 94 ML/MIN (>60); Total Protein,Serum 7.6 g/dl (6.3-8.2)
[2023-09-06 08:49] LABS: Calcium 8.9 mg/dl (8.4-10.2); Glucose 186 mg/dl (74-100)
[2023-09-06 08:54] LABS: C-Reactive Protein 1.1 mg/L (0-4)
[2023-09-06 09:00] VITALS: BP 140/80; PULSE 90; RESP 18; TEMP 36.6; O2SAT 97
[2023-09-06 09:30] VITALS: BP 135/81; PULSE 91
[2023-09-06 10:00] VITALS: BP 143/83; PULSE 97
[2023-09-06 10:15] VITALS: BP 143/64; PULSE 95
== END 2023-09-06 10:15 | disposition home or self-care (01) ==
LOC: INF 08:19
PROVIDERS: PCP Nurse Practitioner Family; Visit Provider Internal Medicine Gastroenterology
DX: K50.90 Crohn's disease, unspecified, without complications (principal)
CPT/HCPCS: 80053; 85025; 86140; 96413; J2327

== ENCOUNTER 2023-10-04 08:21 | Outpatient (CLI) | payer BC, SELFPAY ==
[2023-10-04 08:27] VITALS: BMI 23.7
[2023-10-04 08:50] LABS: Basophils # 0.1 K/mm3 (0-0.2); Basophils % 0.7 % (0.1-2.0); Eosinophils # 0.1 K/mm3 (0.0-0.4); Eosinophils % 1.1 % (0.1-12.0); Hematocrit 43.4 % (42.0-52.0); Hemoglobin 14.5 g/dL (14.1-18.0); Lymphocytes # 2.3 K/mm3 (0.7-4.5); Lymphocytes % 35.1 % (10-50); Mean Corpuscular HGB Conc 33.4 g/dL (31.8-35.4); Mean Corpuscular Hemoglobin 31.8 pg (27.0-31.2); Mean Corpuscular Volume 95.1 fl (80-94); Mean Platelet Volume 8.3 fl (7.4-10.4); Monocytes # 0.4 K/mm3 (0.1-1.0); Monocytes % 5.4 % (1.7-9.3); Neutrophils # 3.7 K/mm3 (1.8-7.8); Neutrophils % 57.7 % (37.0-80.0); Platelet Count 235 K/mm3 (142-424); Red Blood Count 4.57 M/mm3 (4.60-6.20); Red Cell Distribution Width 13.5 % (11.5-17.5); White Blood Count 6.5 K/mm3 (4.8-10.8)
[2023-10-04 08:58] LABS: Chloride 102 mmol/L (98-107); Potassium 4.7 mmoL/L (3.5-5.1); Sodium 138 mmol/L (136-145)
[2023-10-04 09:01] LABS: Alanine Aminotransferase 46 U/L (12-78); Albumin Level 4.6 g/dl (3.5-5.0); Albumin/Globulin Ratio 1.5 (1.1-1.8); Alkaline Phosphatase 111 U/L (38-126); Anion Gap 11.7 mEq/L (5-15); Aspartate Amino Transferase 37 U/L (17-59); Bilirubin,Total 0.4 mg/dl (0.2-1.3); Blood Urea Nitrogen 17 mg/dl (9-20); Carbon Dioxide 29 mmol/L (22.0-30.0); Creatinine Clearance Estimated 93 mL/min (50-200); Estimated Glomerular Filt Rate 77 ml/min (>60); GFR (African American) 94 ML/MIN (>60); Globulin 3.1 g/dL (1.3-3.2); Total Protein,Serum 7.7 g/dl (6.3-8.2)
[2023-10-04 09:02] LABS: Calcium 8.9 mg/dl (8.4-10.2); Glucose 159 mg/dl (74-100)
[2023-10-04 09:07] LABS: C-Reactive Protein 1.1 mg/L (0-4)
[2023-10-04 09:10] VITALS: BP 132/83; PULSE 74; RESP 18; TEMP 36.6; O2SAT 98
[2023-10-04 09:40] VITALS: BP 129/81; PULSE 78; RESP 18; O2SAT 97
[2023-10-04 10:22] VITALS: BP 135/86; PULSE 83; RESP 18; O2SAT 98
== END 2023-10-04 10:25 | disposition home or self-care (01) ==
LOC: INF 08:22
PROVIDERS: PCP Nurse Practitioner Family; Visit Provider Internal Medicine Gastroenterology
DX: Z51.12 Encounter for antineoplastic immunotherapy (principal); K50.90 Crohn's disease, unspecified, without complications
CPT/HCPCS: 80053; 85025; 86140; 96413; J2327

== ENCOUNTER 2023-11-03 08:16 | Outpatient (CLI) | payer BC, SELFPAY ==
[2023-11-03 08:20] VITALS: BMI 23.7
[2023-11-03] MEDS: DEXTROSE 5 % IN WATER 100 ML 50 ML IV (08:36)
[2023-11-03 08:51] LABS: Basophils % 0.7 % (0.1-2.0); Eosinophils # 0.1 K/mm3 (0.0-0.4); Eosinophils % 1.7 % (0.1-12.0); Hematocrit 43.8 % (42.0-52.0); Hemoglobin 14.7 g/dL (14.1-18.0); Lymphocytes # 2.3 K/mm3 (0.7-4.5); Lymphocytes % 38.7 % (10-50); Mean Corpuscular HGB Conc 33.4 g/dL (31.8-35.4); Mean Corpuscular Hemoglobin 31.4 pg (27.0-31.2); Mean Corpuscular Volume 93.9 fl (80-94); Mean Platelet Volume 7.9 fl (7.4-10.4); Monocytes # 0.3 K/mm3 (0.1-1.0); Monocytes % 4.4 % (1.7-9.3); Neutrophils # 3.2 K/mm3 (1.8-7.8); Neutrophils % 54.5 % (37.0-80.0); Platelet Count 241 K/mm3 (142-424); Red Blood Count 4.66 M/mm3 (4.60-6.20); Red Cell Distribution Width 13.4 % (11.5-17.5)
[2023-11-03 08:58] VITALS: BP 157/85; PULSE 89; RESP 18; TEMP 36.9; O2SAT 98
[2023-11-03] MEDS: WATER IV (08:58)
[2023-11-03] MEDS: DEXTROSE 5% IV (08:58)
[2023-11-03] MEDS: RISANKIZUMAB RZAA IV (08:58)
[2023-11-03 09:07] LABS: Alanine Aminotransferase 45 U/L (12-78); Albumin Level 4.3 g/dl (3.5-5.0); Albumin/Globulin Ratio 1.4 (1.1-1.8); Alkaline Phosphatase 103 U/L (38-126); Anion Gap 9.4 mEq/L (5-15); Aspartate Amino Transferase 37 U/L (17-59); Bilirubin,Total 0.3 mg/dl (0.2-1.3); Blood Urea Nitrogen 12 mg/dl (9-20); Calcium 9.1 mg/dl (8.4-10.2); Carbon Dioxide 30 mmol/L (22.0-30.0); Chloride 101 mmol/L (98-107); Creatinine Clearance Estimated 93 mL/min (50-200); Estimated Glomerular Filt Rate 77 ml/min (>60); GFR (African American) 94 ML/MIN (>60); Globulin 3.1 g/dL (1.3-3.2); Glucose 165 mg/dl (74-100); Potassium 4.4 mmoL/L (3.5-5.1); Sodium 136 mmol/L (136-145); Total Protein,Serum 7.4 g/dl (6.3-8.2)
[2023-11-03 09:12] LABS: C-Reactive Protein 0.9 mg/L (0-4)
[2023-11-03 09:30] VITALS: BP 151/89; PULSE 87; RESP 18; O2SAT 98
== END 2023-11-03 10:20 | disposition home or self-care (01) ==
LOC: INF 08:17
PROVIDERS: PCP Nurse Practitioner Family; Visit Provider Internal Medicine Gastroenterology
DX: K50.90 Crohn's disease, unspecified, without complications (principal); Z79.899 Other long term (current) drug therapy
CPT/HCPCS: 80053; 85025; 86140; 96413; J2327

== ENCOUNTER 2023-11-25 14:40 | Emergency (ER) | payer BC, SELFPAY ==
[2023-11-25 15:30] VITALS: BP 169/91; PULSE 89; RESP 18; TEMP 36.8; O2SAT 96; BMI 16.9
--- NOTE | 2023-11-25 15:36 | ED_ITS ---
Discharge Plan Disposition Patient Disposition: Home, Self-Care Condition: Good Prescriptions Prescriptions: New cephalexin 500 mg capsule 500 mg PO QID Qty: 40 0RF No Action (DME) blood-glucose meter [Blood Glucose Monitoring] Kit See Rx Instructions .ROUTE .MEDSUPPLY Qty: 1 0RF Rx Instructions: BID naftifine 2 % gel 1 applic topical DAILY 14 Days Qty: 45 0RF gabapentin 400 mg capsule 400 mg PO TID Qty: 90 2RF cyclobenzaprine 10 mg tablet 10 mg PO TID PRN (Reason: muscle spasm) Qty: 90 1RF (DME) OneTouch Ultra Test Strip See Rx Instructions .ROUTE .COMPLEX Qty: 100 0RF Dose Instruction: USE DIRECTED 2 TIMES A DAY Rx Instructions: USE DIRECTED 2 TIMES A DAY (DME) lancets [OneTouch Delica Plus Lancet] 33 gauge misc See Rx Instructions .ROUTE .COMPLEX Qty: 100 0RF Dose Instruction: USE DIRECTED 2 TIMES A DAY Rx Instructions: USE DIRECTED 2 TIMES A DAY risankizumab-rzaa 60 mg/mL Solution 600 mg IV MONTHLY metformin 1,000 mg tablet 1,000 mg PO BID Rx Instructions: TAKE ONE TABLET BY MOUTH 2 TIMES A DAY lisinopril 2.5 mg tablet 2.5 mg PO DAILY Rx Instructions: TAKE ONE TABLET BY MOUTH ONCE A DAY atorvastatin 10 mg tablet 10 mg PO HS Rx Instructions: TAKE 1 TABLET BY MOUTH AT BEDTIME FOR CHOLESTEROL aspirin 81 mg tablet,delayed release (DR/EC) 81 mg PO DAILY Rx Instructions: TAKE ONE TABLET BY MOUTH ONCE A DAY Referrals Follow up/Referrals: Segundo Hawthorne APRN [Primary Care Provider] - See instructions Activity Restrictions/Add. Instructions Additional Instructions/Restrictions: Keep the wound clean and dry. Watch the wound for signs of infection, such as redness, swelling, drainage, fever. etc. Take tylenol or ibuprofen for pain. Take the antibiotics (cephalexin/keflex) as directed. Follow up with your regular doctor. GO TO THE ER FOR ANY WORSENING SYMPTOMS OR CONCERNS. Clinical Impressions Clinical Impression: Laceration of left thumb, Need for Tdap vaccination Instructions Patient Instructions: Tetanus, Diphtheria, and Pertussis Vaccine, DI for Laceration Repair-Skin Glue, Cephalexin Discharge ED Provider: Naren Koch [facility] [place] General Stated complaint: cut on right thumb Time Seen by Provider: 02/01/24 15:36 History of Present Illness Provider Complaint: He states that about 2 hours ago he slipped with a utility knife and cut himself on the tip of his right thumb. He states that his tetanus immunization is not up to date. He is a diabetic. Related Data Home Medications Medication Instructions Recorded Confirmed risankizumab-rzaa 60 mg/mL 600 mg IV MONTHLY crohns 09/06/23 11/03/23 intravenous solution aspirin 81 mg tablet,delayed 81 mg PO DAILY Blood Thinner 11/03/23 11/03/23 release atorvastatin 10 mg tablet 10 mg PO HS Cholesterol 11/03/23 11/03/23 lisinopril 2.5 mg tablet 2.5 mg PO DAILY blood 11/03/23 11/03/23 pressure/kidneys metformin 1,000 mg tablet 1,000 mg PO BID blood sugar 11/03/23 11/03/23 Previous Rx's Medication Instructions Recorded blood-glucose meter (Blood Glucose #1 ea 05/13/23 Monitoring kit) naftifine 2 % topical gel 1 applic topical DAILY 2 weeks #45 05/13/23 grams cyclobenzaprine 10 mg tablet 10 mg PO TID PRN muscle spasm #90 09/23/23 tabs gabapentin 400 mg capsule 400 mg PO TID #90 caps 09/23/23 blood sugar diagnostic (OneTouch #100 strips 10/05/23 Ultra Test strips) lancets 33 gauge (OneTouch Delica #100 ea 10/05/23 Plus Lancet) cephalexin 500 mg capsule 500 mg PO QID #40 caps 11/25/23 Allergies Allergy/AdvReac Type Severity Reaction Status Date / Time NSAIDS (Non-Steroidal AdvReac Intermediate Verified 11/25/23 16:03 Anti-Inflamma [facility] Disclaimer: The information contained in this section may have been updated after the patient was seen, as this information can be updated by other users. Medical History Avascular necrosis of bones of both hips Crohn's disease Lymphadenopathy, inguinal Protrusion of lumbar intervertebral disc Testosterone deficiency Family History Other No significant family history Social History Smoking Status: Never smoker alcohol intake: current substance use type: denies use current occupational status: other Travel in the last 8 weeks: None housing: house ROS Obtained: Yes All systems reviewed & no additional complaints except as documented Constitutional Constitutional: Denies chills and Denies fever(s) Eyes Eyes: Denies eye discharge ENT Ears, Nose, Mouth, and Throat: Denies dizziness, Denies otalgia and Denies sore throat Cardiovascular Cardiovascular: Denies chest pain Respiratory Respiratory: Denies shortness of breath, Denies chest congestion, Denies cough, Denies stridor and Denies wheezing Gastrointestinal Gastrointestingal: Denies nausea or vomiting Musculoskeletal Musculoskeletal: Reports system reviewed and no additional complaints, except as documented and Denies arthralgias Integumentary/Breasts Skin/Breast: Reports as per HPI Neurologic Neurologic: Denies dizziness and Denies paresthesias Allergic/Immunologic Allergic/Immunologic: Denies wheezing Physical Exam General General appearance: alert and in no apparent distress Head Head exam: atraumatic, normocephalic and normal inspection Eye Eye exam: Present normal appearance, PERRL and EOMI ENT ENT exam: Present normal exam, normal oropharynx, mucous membranes moist, TM's normal bilaterally and normal external ear exam Neck Neck exam: Present normal inspection, full ROM and trachea midline; Absent meningismus or lymphadenopathy Chest Chest inspection: Present normal inspection and symmetric chest wall rise; Absent tenderness Respiratory Respiratory exam: Present normal lung sounds bilaterally; Absent respiratory distress Cardiovascular Cardiovascular exam: Present regular rate and normal rhythm; Absent JVD Abdominal Exam Abdominal exam: Present soft and normal bowel sounds; Absent distention, tenderness or guarding Extremities Exam Extremities exam: Present normal inspection, full ROM and normal capillary refill; Absent calf tenderness Back Exam Back exam: Present normal inspection; Absent tenderness Neurological Exam Neurological exam: Present alert and oriented X3 Psychiatric Psychiatric exam: Present normal affect and normal mood Skin Skin exam: Present other (there is a flap type laceration on the tip of his right thumb, no deep tissue damage, no tendon damage. He has good 2 point touch discrimination distal to the wound. ) Lymphatic Lymphatic Findings: no adenopathy Medical Decision Making Medical Records Medical records reviewed: No I reviewed the patient's medical records. Demarcus Inquiry Pt receiving controlled substance: No Procedures Risk/Benefits of Procedure(s) Were Explained: Yes Laceration Laceration 1: Site: finger (right thumb) Side (If applicable): right Description: flap Depth: simple, single layer Pre-repair: wound explored, irrigated extensively and deep structures intact Skin layer closed with: Dermabond (He tolerated this well, good closure was obtained using the dermabond. the edges were approximated good. )
[2023-11-25] MEDS: TET/DIPHTH/PERT-ADULT 0.5ML SYRINGE 0.5 ML IM (16:16)
[2023-11-25 16:50] VITALS: BP 169/91; PULSE 89; RESP 18; TEMP 36.8; O2SAT 96
== END 2023-11-25 16:50 | disposition home or self-care (01) ==
PROVIDERS: Emergency Provider Nurse Practitioner Family; PCP Nurse Practitioner Family
DX: S61.002A Unspecified open wound of left thumb without damage to nail, initial encounter (principal); E11.9 Type 2 diabetes mellitus without complications; K50.90 Crohn's disease, unspecified, without complications; E78.5 Hyperlipidemia, unspecified; Z79.84 Long term (current) use of oral hypoglycemic drugs; W26.0XXA Contact with knife, initial encounter; Z23 Encounter for immunization
CPT/HCPCS: 12001; 90471; 90715; 99213; 99214; G0463

== ENCOUNTER 2023-12-28 08:00 | Emergency (ER) | payer BC, SELFPAY ==
[2023-12-28 08:10] VITALS: BP 148/87; PULSE 111; RESP 18; TEMP 36.7; O2SAT 98; BMI 23.7
[2023-12-28 08:38] LABS: UTC Influenza A Antigen Negative (Negative); UTC Influenza B Antigen Negative (Negative)
--- NOTE | 2023-12-28 08:38 | EXP.UTC ---
Discharge Plan Disposition Patient Disposition: Home, Self-Care Condition: Good Prescriptions Prescriptions: New azithromycin [Zithromax] 250 mg tablet 250 mg PO UD DOSE PK Qty: 6 0RF Rx Instructions: Take two (2) tablets today, then one (1) tablet days #2 thru #5 benzonatate [benzonatate] 100 mg capsule 100 mg PO TIDP PRN (Reason: Cough) Qty: 30 0RF guaifenesin [Mucinex] 600 mg tablet extended release 12hr 600 - 1,200 mg PO BIDP PRN (Reason: Congestion) Qty: 30 0RF No Action (DME) blood-glucose meter [Blood Glucose Monitoring] Kit See Rx Instructions .ROUTE .MEDSUPPLY Qty: 1 0RF Rx Instructions: BID naftifine 2 % gel 1 applic topical DAILY 14 Days Qty: 45 0RF gabapentin 400 mg capsule 400 mg PO TID Qty: 90 2RF cyclobenzaprine 10 mg tablet 10 mg PO TID PRN (Reason: muscle spasm) Qty: 90 1RF (DME) OneTouch Ultra Test Strip See Rx Instructions .ROUTE .COMPLEX Qty: 100 0RF Dose Instruction: USE DIRECTED 2 TIMES A DAY Rx Instructions: USE DIRECTED 2 TIMES A DAY (DME) lancets [OneTouch Delica Plus Lancet] 33 gauge misc See Rx Instructions .ROUTE .COMPLEX Qty: 100 0RF Dose Instruction: USE DIRECTED 2 TIMES A DAY Rx Instructions: USE DIRECTED 2 TIMES A DAY Skyrizi 60 mg/mL Solution 600 mg IV MONTHLY metformin 1,000 mg tablet 1,000 mg PO BID Rx Instructions: TAKE ONE TABLET BY MOUTH 2 TIMES A DAY lisinopril 2.5 mg tablet 2.5 mg PO DAILY Rx Instructions: TAKE ONE TABLET BY MOUTH ONCE A DAY atorvastatin 10 mg tablet 10 mg PO HS Rx Instructions: TAKE 1 TABLET BY MOUTH AT BEDTIME FOR CHOLESTEROL aspirin 81 mg tablet,delayed release (DR/EC) 81 mg PO DAILY Rx Instructions: TAKE ONE TABLET BY MOUTH ONCE A DAY esomeprazole magnesium 20 mg capsule,delayed release(DR/EC) 20 mg PO DAILY Referrals Follow up/Referrals: Segundo Hawthorne APRN [Primary Care Provider] - See instructions Activity Restrictions/Add. Instructions Additional Instructions/Restrictions: Drink plenty of fluids. Take tylenol or ibuprofen for pain or fever. Take the medications as directed. Follow up with your regular doctor. GO TO THE ER FOR ANY WORSENING SYMPTOMS Clinical Impressions Clinical Impression: Sinusitis Instructions Patient Instructions: Sinusitis, DI for Sinusitis Discharge ED Provider: Naren Koch [facility] [place] HPI General Stated complaint: possible sinus infection Mode of Arrival: Ambulatory Source of Information: Patient Limitations: No Limitations Time Seen by Provider: 12/28/23 08:38 Description of Symptoms (Recalled from Triage Doc. by RN): Pt's symptoms are body aches, cough, and runny nose. HEENT Symptoms (Recalled from RN notes): Yes Resp Symptoms (Recalled from RN notes): No Skin Symptoms (Recalled from RN notes): No MS Symptoms (Recalled from RN notes): No Functional Status (Recalled from RN notes): n/a History of Present Illness Provider Complaint: He states that for the past 2 days he has had worsening sinus congestion, ear pain and a scratchy throat. He is developing a productive cough now. He denies fever/chills/body aches. Related Data Home Medications Medication Instructions Recorded Confirmed risankizumab-rzaa 60 mg/mL 600 mg IV MONTHLY crohns 09/06/23 12/28/23 intravenous solution (Skyrizi) aspirin 81 mg tablet,delayed 81 mg PO DAILY Blood Thinner 11/03/23 12/28/23 release atorvastatin 10 mg tablet 10 mg PO HS Cholesterol 11/03/23 12/28/23 lisinopril 2.5 mg tablet 2.5 mg PO DAILY blood 11/03/23 12/28/23 pressure/kidneys metformin 1,000 mg tablet 1,000 mg PO BID blood sugar 11/03/23 12/28/23 esomeprazole magnesium 20 mg 20 mg PO DAILY 12/28/23 12/28/23 capsule,delayed release Previous Rx's Medication Instructions Recorded blood-glucose meter (Blood Glucose #1 ea 05/13/23 Monitoring kit) naftifine 2 % topical gel 1 applic topical DAILY 2 weeks #45 05/13/23 grams cyclobenzaprine 10 mg tablet 10 mg PO TID PRN muscle spasm #90 09/23/23 tabs gabapentin 400 mg capsule 400 mg PO TID #90 caps 09/23/23 blood sugar diagnostic (Cuff-Protectuch #100 strips 10/05/23 Ultra Test strips) lancets 33 gauge (VariopticTouch Delica #100 ea 10/05/23 Plus Lancet) azithromycin 250 mg tablet 250 mg PO UD DOSE PK #6 tabs 12/28/23 (Zithromax) benzonatate 100 mg capsule 100 mg PO TIDP PRN Cough #30 caps 12/28/23 guaifenesin 600 mg tablet, 600 - 1,200 mg PO BIDP PRN 12/28/23 extended release 12 hr (Mucinex) Congestion #30 tabs Allergies Allergy/AdvReac Type Severity Reaction Status Date / Time NSAIDS (Non-Steroidal AdvReac Intermediate Verified 12/28/23 08:27 Anti-Inflamma Worker's Comp Is this a Worker's Comp case?: No [facility] Disclaimer: The information contained in this section may have been updated after the patient was seen, as this information can be updated by other users. Medical History Avascular necrosis of bones of both hips Crohn's disease Lymphadenopathy, inguinal Protrusion of lumbar intervertebral disc Testosterone deficiency Family History Other No significant family history Social History Smoking Status: Never smoker alcohol intake: current substance use type: denies use current occupational status: other Travel in the last 8 weeks: None housing: house ROS Obtained: Yes All systems reviewed & no additional complaints except as documented Constitutional Constitutional: Reports poor appetite Eyes Eyes: Reports system reviewed and no additional complaints, except as documented ENT Ears, Nose, Mouth, and Throat: Reports as per HPI Cardiovascular Cardiovascular: Reports system reviewed and no additional complaints, except as documented and Denies chest pain Respiratory Respiratory: Denies shortness of breath, Denies chest congestion, Reports cough, Denies stridor and Denies wheezing Gastrointestinal Gastrointestingal: Reports system reviewed and no additional complaints, except as documented; Denies abdominal pain, diarrhea or vomiting Musculoskeletal Musculoskeletal: Reports system reviewed and no additional complaints, except as documented and Denies arthralgias Integumentary/Breasts Skin/Breast: Reports system reviewed and no additional complaints, except as documented and Denies rash Neurologic Neurologic: Denies paresthesias Allergic/Immunologic Allergic/Immunologic: Denies wheezing Physical Exam General General appearance: alert and in no apparent distress Eye Eye exam: Present normal appearance, PERRL and EOMI ENT ENT exam: Present mucous membranes moist and normal external ear exam Expanded ENT Exam External ear exam: Present normal external inspection TM/Canal exam: Bilateral TM: erythema and bulging Nose exam: Absent sinus tenderness Nasal speculum exam: Bilateral: normal Mouth exam: Present normal external inspection; Absent drooling Teeth exam: Present normal inspection Throat exam: Present tonsillar erythema and tonsillomegaly Neck Neck exam: Present normal inspection, full ROM and trachea midline; Absent tenderness, lymphadenopathy or thyromegaly Chest Chest inspection: Present normal inspection and symmetric chest wall rise; Absent tenderness or rash Respiratory Respiratory exam: Present normal lung sounds bilaterally; Absent respiratory distress, wheezes, stridor or accessory muscle use Cardiovascular Cardiovascular exam: Present regular rate, normal rhythm and normal heart sounds Abdominal Exam Abdominal exam: Present soft; Absent distention, tenderness, guarding, rebound or rigidity Extremities Exam Extremities exam: Present normal inspection, full ROM and normal capillary refill; Absent tenderness or calf tenderness Back Exam Back exam: Present normal inspection and full ROM; Absent tenderness Neurological Exam Neurological exam: Present alert and oriented X3 Psychiatric Psychiatric exam: Present normal affect and normal mood Skin Skin exam: Present warm, dry, intact and normal color Lymphatic Lymphatic Findings: no adenopathy Medical Decision Making Medical Records Medical records reviewed: No I reviewed the patient's medical records. Demarcus Inquiry Pt receiving controlled substance: No Vital Signs: 12/28/23 08:10 Temperature 98.0 F Temperature Source Oral Pulse Rate [Right Radial] 111 H Respiratory Rate 18 Blood Pressure [Right Arm] 148/87 H Blood Pressure Mean [Right Arm] 107 Blood Pressure Source [Right Arm] Automatic Cuff Blood Pressure Position [Right Arm] Sitting 02 Sat by Pulse Oximetry 98 Oxygen Delivery Method Room Air
[2023-12-28 08:54] VITALS: BP 148/87; PULSE 111; RESP 18; TEMP 36.7; O2SAT 98
== END 2023-12-28 08:54 | disposition home or self-care (01) ==
PROVIDERS: Emergency Provider Nurse Practitioner Family; PCP Nurse Practitioner Family
DX: J01.90 Acute sinusitis, unspecified (principal); H92.03 Otalgia, bilateral; R07.0 Pain in throat; R05.9 Cough, unspecified; R09.81 Nasal congestion
CPT/HCPCS: 87804; 99212; 99214; G0463

== ENCOUNTER 2024-03-15 12:39 | Outpatient (CLI) | payer BC, SELFPAY ==
--- NOTE | 2024-03-15 12:43 | XR_ITS ---
FINAL REPORT CLINICAL HISTORY: L Hip Pain COMPARISON: None FINDINGS: 3 images of the left hip were obtained. There is no evidence of fracture or dislocation. The joint spaces are intact. There is no soft tissue abnormality identified. IMPRESSION: No acute bony abnormality. Reviewed, Interpreted and Dictated by Nicanor Singh MD Transcribed by Luh Hercules Authenticated and [facility]
[2024-03-24 17:03] LABS: Calprotectin, Fecal 95 ug/g (0-120)
== END 2024-03-15 23:59 | disposition home or self-care (01) ==
LOC: RAD 12:40
PROVIDERS: Internal Medicine Gastroenterology; PCP Nurse Practitioner Family; Visit Provider Nurse Practitioner Family
DX: M25.552 Pain in left hip (principal); E11.9 Type 2 diabetes mellitus without complications
CPT/HCPCS: 73502; 83993

== ENCOUNTER 2024-04-14 07:36 | Outpatient (CLI) | payer BC, SELFPAY ==
--- NOTE | 2024-04-14 07:36 | US_ITS ---
FINAL REPORT CLINICAL HISTORY: LT ANDREE CORE BX -- SENAIT BROWNLEE FINDINGS: Ultrasound guided left groin lymph node biopsy. HISTORY: left groin adenopathy. PROCEDURE: After informed consent was obtained and a time-out was performed, the patient was prepped and draped in usual sterile fashion over the left groin. Utilizing local anesthesia and sterile technique with an 18-gauge core gun, access to the lesion was obtained. 3 passes were made. The patient received no conscious sedation. The patient tolerated the procedure well and left the department in good condition. IMPRESSION: Status post ultrasound guided biopsy of a left groin lymph node without immediate complication. Films reviewed , interpreted and dictated by Dr. Smyth. Transcribed by Senait Bains PA-C. Reviewed, Interpreted and Dictated by Julian Smyth MD Transcribed by TORRIE Bush Authenticated and . [facility]
--- NOTE | 2024-04-14 07:36 | US_ITS ---
FINAL REPORT CLINICAL HISTORY: enlarged lymph node LT SIDE FINDINGS: Ultrasound left groin Clinical history: Left groin lymph node Findings: Ultrasound imaging was obtained in left groin. There is an enlarged left groin lymph node in the region of palpable abnormality measuring 4.2x1.4x2.9 cm. IMPRESSION: Enlarged left groin lymph node. Biopsy will be obtained. Films reviewed , interpreted and dictated by Dr. Smyth. Transcribed by Bradford Bains PA-C. Reviewed, Interpreted and Dictated by Julian Smyth MD Transcribed by TORRIE Bush Authenticated and . [facility]
== END 2024-04-14 23:59 | disposition home or self-care (01) ==
LOC: RAD 07:36
PROVIDERS: PCP Physician Assistant; Visit Provider Physician Assistant
DX: R59.1 Generalized enlarged lymph nodes (principal)
CPT/HCPCS: 76882; 76942

== ENCOUNTER 2024-04-19 11:47 | Outpatient (CLI) | payer BC, SELFPAY ==
[2024-04-19 11:49] VITALS: BMI 23.8
--- NOTE | 2024-04-19 12:07 | PC.NURSE ---
1155 - BLOOD DRAWN FROM RIGHT AC USING BUTTERFLY NEEDLE TO CHECK LABS ORDERED BY DR GUTHRIE.
[2024-04-19 12:11] LABS: Chloride 104 mmol/L (98-107); Sodium 137 mmol/L (136-145)
[2024-04-19 12:12] LABS: Basophils # 0.1 K/mm3 (0-0.2); Basophils % 0.7 % (0.1-2.0); Eosinophils # 0.2 K/mm3 (0.0-0.4); Eosinophils % 1.9 % (0.1-12.0); Hematocrit 42.3 % (42.0-52.0); Lymphocytes # 2.9 K/mm3 (0.7-4.5); Lymphocytes % 38.4 % (10-50); Mean Corpuscular Volume 93.9 fl (80-94); Mean Platelet Volume 8.4 fl (7.4-10.4); Monocytes # 0.3 K/mm3 (0.1-1.0); Monocytes % 4.4 % (1.7-9.3); Neutrophils # 4.2 K/mm3 (1.8-7.8); Neutrophils % 54.6 % (37.0-80.0); Platelet Count 242 K/mm3 (142-424); Potassium 4.6 mmoL/L (3.5-5.1); Red Cell Distribution Width 14.4 % (11.5-17.5); White Blood Count 7.6 K/mm3 (4.8-10.8)
[2024-04-19 12:14] LABS: Alanine Aminotransferase 53 U/L (12-78); Albumin Level 4.6 g/dl (3.5-5.0); Albumin/Globulin Ratio 1.4 (1.1-1.8); Alkaline Phosphatase 87 U/L (38-126); Anion Gap 12.6 mEq/L (5-15); Aspartate Amino Transferase 38 U/L (17-59); Bilirubin,Total 0.3 mg/dl (0.2-1.3); Blood Urea Nitrogen 24 mg/dl (9-20); Carbon Dioxide 25 mmol/L (22.0-30.0); Creatinine Clearance Estimated 102 mL/min (50-200); Estimated Glomerular Filt Rate 87 ml/min (>60); GFR (African American) 105 ML/MIN (>60); Globulin 3.2 g/dL (1.3-3.2); Total Protein,Serum 7.8 g/dl (6.3-8.2)
[2024-04-19 12:15] LABS: Calcium 9.5 mg/dl (8.4-10.2); Glucose 124 mg/dl (74-100)
[2024-04-19 12:34] LABS: Lactate Dehydrogenase 164 U/L (313-618)
[2024-04-21 10:13] LABS: Hep B Core Ab, Total Negative (Negative); Hep B Surface Ab, Qual Non Reactive (.)
== END 2024-04-19 12:00 ==
LOC: INF 11:48
PROVIDERS: PCP Physician Assistant; Visit Provider Internal Medicine Medical Oncology
DX: C82.90 Follicular lymphoma, unspecified, unspecified site
CPT/HCPCS: 36415; 80053; 83615; 85025; 86704; 86706

== ENCOUNTER 2024-04-21 06:42 | Outpatient (CLI) | payer BC, SELFPAY ==
[2024-04-21] VITALS (16 sets, daily range): BP systolic 127–157; BP diastolic 77–93; PULSE 79–100; RESP 16–18; TEMP 36.8; O2SAT 94–100; BMI 23.8
[2024-04-21 07:26] LABS: POC Glucose,Bedside 149 (70-110)
[2024-04-21 07:40] LABS: Activated Partial Thrombo Time 28.3 seconds (22.8-30.6); INR 0.86 (0.9-1.1); Prothrombin Time 9.8 seconds (10.1-12.5)
--- NOTE | 2024-04-21 07:44 | CT_ITS ---
FINAL REPORT CLINICAL HISTORY: .BONE MARROW BIOPSY 5 VERSED 100 FENTANYL FINDINGS: CT GUIDED BONE MARROW ASPIRATION AND CORE BIOPSY. HISTORY: Non-Hodgkin's lymphoma. ATTENDING PHYSICIAN: Dr. Rico PHYSICIAN GRIP WRAPPER: Tonio Hanna PA-C PROCEDURE: After informed consent was obtained and a timeout was performed, the patient was prepped and draped in usual sterile fashion over the left pelvis. Utilizing local anesthesia and sterile technique with a coaxial drill system, access to left iliac bone was obtained under direct CT guidance. Aspirate was obtained. In addition, a large core of marrow was obtained. The patient received moderate procedural sedation. The patient tolerated the procedure well and left the department in good condition. PROCEDURAL SEDATION: 5 mg of IV Versed and 100 mcg of Fentanyl were administered. Continuous vital sign monitoring was used. An RN was present during the sedation process. Overall sedation time was 30 minutes. IMPRESSION: Status post CT guided bone marrow aspiration and core biopsy as above. Films reviewed , interpreted and dictated by Dr. Smyth. Transcribed by Tonio Hanna PA-C. Reviewed, Interpreted and Dictated by Julian Smyth MD Transcribed by TORRIE Bush Authenticated and [facility]
[2024-04-21] MEDS: HEPARIN SODIUM 5,000 UNIT/ML VIAL 5000 UNIT (08:54)
[2024-04-21] MEDS: LIDOCAINE 1% 20ML MDV 20 ML (08:54)
== END 2024-04-21 10:50 | disposition home or self-care (01) ==
PROVIDERS: PCP Physician Assistant; Visit Provider Internal Medicine Medical Oncology
DX: C82.95 Follicular lymphoma, unspecified, lymph nodes of inguinal region and lower limb (principal); K50.90 Crohn's disease, unspecified, without complications; Z79.620 Long term (current) use of immunosuppressive biologic
CPT/HCPCS: 38221; 77012; 82962; 85610; 85730; J1644; J2250; J3010

== ENCOUNTER 2024-09-26 21:32 | Outpatient (CLI) | payer BC, SELFPAY ==
[2024-09-26 22:13] LABS: Basophils % 0.6 % (0.1-2.0); Eosinophils # 0.1 K/mm3 (0.0-0.4); Eosinophils % 1.8 % (0.1-12.0); Hematocrit 45.3 % (42.0-52.0); Lymphocytes # 0.9 K/mm3 (0.7-4.5); Lymphocytes % 19.3 % (10-50); Mean Corpuscular HGB Conc 33.1 g/dL (31.8-35.4); Mean Corpuscular Hemoglobin 32.1 pg (27.0-31.2); Mean Platelet Volume 9.9 fl (7.4-10.4); Monocytes # 0.3 K/mm3 (0.1-1.0); Monocytes % 5.8 % (1.7-9.3); Neutrophils # 3.4 K/mm3 (1.8-7.8); Neutrophils % 72.5 % (37.0-80.0); Platelet Count 243 K/mm3 (142-424); Red Blood Count 4.67 M/mm3 (4.60-6.20); Red Cell Distribution Width 13.6 % (11.5-17.5); White Blood Count 4.7 K/mm3 (4.8-10.8)
[2024-09-26 22:27] LABS: Alanine Aminotransferase 43 U/L (12-78); Albumin Level 4.5 g/dl (3.5-5.0); Albumin/Globulin Ratio 1.7 (1.1-1.8); Alkaline Phosphatase 118 U/L (38-126); Aspartate Amino Transferase 36 U/L (17-59); Bilirubin,Total 0.4 mg/dl (0.2-1.3); Blood Urea Nitrogen 17 mg/dl (9-20); Calcium 9.6 mg/dl (8.4-10.2); Carbon Dioxide 26 mmol/L (22.0-30.0); Chloride 101 mmol/L (98-107); Chol/HDL Ratio 4.2 (1-3.5); Cholesterol 184 mg/dl (140-200); Estimated Glomerular Filt Rate 100 ml/min (>60); GFR (African American) 121 ML/MIN (>60); Globulin 2.6 g/dL (1.3-3.2); Glucose 166 mg/dl (74-100); HDL Cholesterol 44 mg/dl (40-60); Sodium 139 mmol/L (136-145); Total Protein,Serum 7.1 g/dl (6.3-8.2); Triglycerides 383 mg/dl (30-150); VLDL Cholesterol 77 mg/dL (0-40)
[2024-09-26 22:37] LABS: Direct LDL Cholesterol 99.24 mg/dL (100-129)
[2024-09-26 22:55] LABS: Anion Gap 16.5 mEq/L (5-15); Potassium 4.5 mmoL/L (3.5-5.1)
[2024-09-26 22:57] LABS: Prostate Specific Ag Screen 0.8 ng/ml (0.0-4.0); Thyroid Stimulating Hormone 3.05 uIU/mL (0.465-4.68)
== END 2024-09-26 23:59 | disposition home or self-care (01) ==
LOC: LAB.DROPOF 21:33
PROVIDERS: PCP Nurse Practitioner Family; Visit Provider Nurse Practitioner Family
DX: E11.610 Type 2 diabetes mellitus with diabetic neuropathic arthropathy (principal)
CPT/HCPCS: 80050; 80053; 80061; 82306; 84443; 85025; G0103